=== PATIENT | male | born 1975 | race Caucasian/White ===

== ENCOUNTER 2018-02-06 20:47 | Inpatient (IN) | payer MEDICARE ==
[~2018-02-06] VITALS: Ht 188 cm; Wt 105.0 kg
[~2018-02-06 20:47] MED LIST: DESI150T PO; GABA300C3 PO; LAMO25TA OR; METH10TA OR; METO50TA PO; OMEP20CA5 PO; TEST-25 XX
[2018-02-06 20:57] VITALS: BP 131/76; PULSE 130; RESP 18; TEMP 100.8; O2SAT 98
[2018-02-06] MEDS ORDERED: IBUP1TAB5 PO (21:12)
[2018-02-06 21:20] VITALS: BP 138/81; PULSE 125; RESP 18; O2SAT 95
[2018-02-06] MEDS ORDERED: METO50TA PO (21:23)
[2018-02-06] MEDS ORDERED: GABA300C5 PO (21:23)
[2018-02-06] MEDS ORDERED: DESI150T PO (21:23)
[2018-02-06] MEDS ORDERED: LAMO100T PO (21:23)
[2018-02-06] MEDS ORDERED: METH10TA PO (21:23)
[2018-02-06 21:24] VITALS: O2SAT 95
--- NOTE | 2018-02-06 21:34 | PD ---
HPI Chief Complaint: Fever Time Seen by Provider: 21:20 Travel History International Travel<30 days: No Contact w/Intl Traveler<30days: No Traveled to known affect area: No History of Present Illness HPI The patient is a 42 year old male who presents to the [facility] emergency department with a history of peripheral neuropathy and Charcot foot with a chronic area of ulceration on the left foot that first was noticed 2 years ago. The patient reports that twice in the last 6 months he has had an infection associated with the ulcer. The patient reports that he was last admitted to [facility] ([place], [place]) approximately 2 weeks ago for 6 days. He reports that he was discharged home on 1 week ago. He reports that he was admitted related to fevers and a suspected osteomyelitis of the left foot after an x-ray revealed an abnormality. He reports that he underwent an MRI of the foot that also revealed an abnormality. He then had a biopsy done which was reportedly negative for infection. He reports that the IV antibiotic that he was on during his hospitalization was discontinued and he was discharged home off of all antibiotic. The patient reports that yesterday he began to have fevers again up to 100 and today he had a T-max of 103.5 which prompted his visit to this emergency department. The patient reports that he has been bandaging the area and changing the bandage every day. He reports that he last changed yesterday. He is accompanied to this emergency department visit by his . They report that there has been some drainage from the wound. When the bandage was removed in the emergency department today his reports that there is now a surrounding area of redness which is increased in size compared to his foot evaluation done yesterday when his bandage was replaced. He reports having chills. He reports having nausea without vomiting. He denies having any cough, congestion, sore throat, or rhinorrhea. He denies having any diarrhea. He denies having any frequency. Otherwise on review of systems he denies having any new neck or back pain, chest pain, shortness of breath, abdominal pain, or neurologic symptoms. [facility] Past Medical History Narrative Medical The patient's past medical history is significant for rheumatoid arthritis, peripheral neuropathy, Charcot foot on the left, degenerative disc disease of his back, hypertension, chronic ulcer of the left foot. Cancer: No Cardiovascular Problems: No Diabetes: No Diminished Hearing: No Endocrine: No Gastrointestinal Disorders: Yes (REFLUX) Genitourinary: No Hepatitis: No Hiatal Hernia: No Immune Disorder: No Musculoskeletal: Yes (ARTHRITIS) Psychiatric: No Reproductive: No Respiratory: No Thyroid Disease: No Tetanus Vaccination: < 5 Years Influenza Vaccination: No Past Surgical History Narrative Surgical The patient's past surgical history is significant for right knee arthroscopy 2 , wound debridement of the left foot. Abdominal Surgery: No AICD: No Cardiac Surgery: No Ear Surgery: No Endocrine Surgery: No Eye Surgery: No Genitourinary Surgery: No Gynecologic Surgery: No Joint Replacement: No Oral Surgery: No Pacemaker: No Thoracic Surgery: No Other Surgery: Yes (wound debriment, bone biopsy of the foot) Social History Alcohol Use: No Tobacco Use: No Substance Use: No Allergies-Medications (Allergen,Severity, Reaction): Coded Allergies: No Known Allergies (Unverified Adverse Reaction, Unknown, 02/06/18) Reported Meds & Prescriptions Reported Meds & Active Scripts Active Reported Metoprolol Tartrate 50 Mg Tab 50 Mg PO DAILY Lamotrigine 100 Mg Tab 75 Mg PO BID Desipramine (Desipramine HCl) 150 Mg Tab 150 Mg PO HS Methadone (Methadone HCl) 10 Mg Tab 10 Mg PO TID Gabapentin 300 Mg Cap 300 Mg PO TID Ibuprofen 400 Mg Tab 400 Mg PO QID Review of Systems Except as stated in HPI: all other systems reviewed are Neg General / Constitutional: Positive: Fever, Chills Eyes: No: Visual changes HENT: No: Headaches, Congestion Cardiovascular: No: Chest Pain or Discomfort Respiratory: No: Cough, Shortness of Breath Gastrointestinal: Positive: Nausea, No: Vomiting, Diarrhea, Abdominal Pain Genitourinary: No: Dysuria Musculoskeletal: Positive: Pain Skin: No Rash Neurologic: No: Weakness, Focal Abnormalities, Change in Mentation, Slurred Speech, Sensory Disturbance Psychiatric: No: Depression Endocrine: No: Polydipsia Hematologic/Lymphatic: No: Easy Bruising Physical Exam Narrative General: The patient is a well-developed well-nourished male in no acute distress. Head and Neck exam: Head is normocephalic atraumatic. Eyes: EOMI, pupils are equal round and reactive to light. Nose: Midline septum with pink mucous membranes Mouth: Dentition unremarkable. Moist mucus membranes. Posterior oropharynx is not erythematous. No tonsillar hypertrophy. Uvula midline. Airway patent. Neck: No palpable lymphadenopathy. No nuchal rigidity. No thyromegaly. Cardiovascular: Sinus tachycardia in the 1 teens without murmurs, gallops, or rubs. No pulse deficit to the extremities on simultaneous auscultation and palpation of her radial artery. Lungs: Clear to auscultation bilaterally. No wheezes, rhonchi, or rales. Abdomen: Soft, without tenderness to palpation in all 4 quadrants of the abdomen. No guarding, rebound, or rigidity. Normal bowel sounds are audible. No tenderness on palpation of McBurney's point. Negative Lay sign. Extremities: No clubbing, cyanosis, or edema. 2+ pulses in all 4 extremities. No calf tenderness on palpation. The patient has some deformity noted at the left foot related to his Charcot foot. The patient has a bandage in place which was removed. The patient is noted to have an ulcer along the medial aspect of the foot on the skin overlying the proximal first metatarsal. There is an area of ulceration with minimal drainage that is yellow in color. There is no odor noted. The area of ulcer is 1 x 1 cm. There is a surrounding area of erythema. Patient denies having any tenderness, however he has neuropathy with loss of sensation that is chronic. Back: No spinous process tenderness to palpation. No costovertebral angle tenderness to palpation. Neurologic Exam: Grossly nonfocal. The patient reports diminished sensation in bilateral feet which is chronic related to neuropathy. Skin Exam: No rash noted. Intact skin that is warm and dry. Data Data Last Documented VS Vital Signs Date Time Temp Pulse Resp B/P (MAP) Pulse Ox O2 Delivery O2 Flow Rate FiO2 02/06/18 22:43 101 18 127/78 (94) 98 Room Air 02/06/18 20:57 100.8 Orders Orders Electrocardiogram (02/06/18 21:20) Complete Blood Count With Diff (02/06/18 21:20) Comprehensive Metabolic Panel (02/06/18 21:20) Prothrombin Time / Inr (Pt) (02/06/18 21:20) Act Partial Throm Time (Ptt) (02/06/18 21:20) Blood Culture (02/06/18 21:20) C-Reactive Protein (Crp) (02/06/18 21:20) Urinalysis - C+S If Indicated (02/06/18 21:20) Westergren Sedimentation Rate (02/06/18 21:20) Magnesium (Mg) (02/06/18 21:20) Wound Culture And Gram Stain (02/06/18 21:20) Chest, Single Ap (02/06/18 21:20) Iv Access Insert/Monitor (02/06/18 21:20) Ecg Monitoring (02/06/18 21:20) Oximetry (02/06/18 21:20) Lactic Acid Sepsis Protocol (02/06/18 21:20) Sodium Chlor 0.9% 1000 Ml Inj (Ns 1000 M (02/06/18 22:00) Piperacil-Tazo 3.375 Gm Premix (Zosyn 3. (02/06/18 22:00) Vancomycin Inj (Vancomycin Inj) (02/06/18 22:00) Sodium Chlor 0.9% 1000 Ml Inj (Ns 1000 M (02/06/18 22:45) Admit Order (Ed Use Only) (02/06/18 22:57) Consult Podiatry (02/06/18 ) Vital Signs (Adult) AIDE.Q4H (02/06/18 22:55) Activity Oob With Assistance (02/06/18 22:55) Diet Heart Healthy (02/07/18 Breakfast) Linezolid (Zyvox) (02/07/18 09:00) C-Reactive Protein (Crp) (02/07/18 06:00) Piperacil-Tazo 3.375 Gm Premix (Zosyn 3. (02/07/18 10:00) Labs Laboratory Tests Test 02/06/18 21:27 White Blood Count 8.4 TH/MM3 Red Blood Count 5.04 MIL/MM3 Hemoglobin 14.3 GM/DL Hematocrit 41.6 % Mean Corpuscular Volume 82.4 FL Mean Corpuscular Hemoglobin 28.4 PG Mean Corpuscular Hemoglobin Concent 34.4 % Red Cell Distribution Width 13.5 % Platelet Count 214 TH/MM3 Mean Platelet Volume 7.9 FL Neutrophils (%) (Auto) 82.9 % Lymphocytes (%) (Auto) 9.7 % Monocytes (%) (Auto) 6.6 % Eosinophils (%) (Auto) 0.0 % Basophils (%) (Auto) 0.8 % Neutrophils # (Auto) 7.0 TH/MM3 Lymphocytes # (Auto) 0.8 TH/MM3 Monocytes # (Auto) 0.6 TH/MM3 Eosinophils # (Auto) 0.0 TH/MM3 Basophils # (Auto) 0.1 TH/MM3 CBC Comment DIFF FINAL Differential Comment Erythrocyte Sedimentation Rate 51 mm/hr Prothrombin Time 12.3 SEC Prothromb Time International Ratio 1.2 RATIO Activated Partial Thromboplast Time 33.0 SEC Blood Urea Nitrogen 6 MG/DL Creatinine 1.04 MG/DL Random Glucose 148 MG/DL Total Protein 8.6 GM/DL Albumin 3.4 GM/DL Calcium Level 8.9 MG/DL Magnesium Level 1.8 MG/DL Alkaline Phosphatase 149 U/L Aspartate Amino Transf (AST/SGOT) 36 U/L Alanine Aminotransferase (ALT/SGPT) 31 U/L Total Bilirubin 0.6 MG/DL Sodium Level 131 MEQ/L Potassium Level 3.7 MEQ/L Chloride Level 98 MEQ/L Carbon Dioxide Level 19.8 MEQ/L Anion Gap 13 MEQ/L Estimat Glomerular Filtration Rate 78 ML/MIN Lactic Acid Level 2.8 mmol/L C-Reactive Protein 13.00 MG/DL [facility] Medical Decision Making Medical Screen Exam Complete: Yes Emergency Medical Condition: Yes Medical Record Reviewed: Yes Differential Diagnosis Febrile illness caused by cellulitis, versus osteomyelitis, versus this, versus sepsis of undetermined cause Narrative Course During the course of the patient's emergency department visit, the patient's history, examination, and differential diagnosis were reviewed with the patient. The patient was placed on a traffic monitor specialist with oximetry and frequent blood pressure monitoring. The patient had IV access obtained and blood work sent for analysis. Blood cultures 2 were ordered, lactic acid was sent. Sedimentation rate was ordered. The patient had an EKG done on arrival that shows a sinus tachycardia rate of 108, QRS duration is 113 ms, QTC 389 ms. The patient has an incomplete right bundle branch noted. The patient has nonspecific ST-T wave abnormalities noted. T waves are inverted in lead III, V1 , V2, V3. The patient's records from [facility] ([place], [place]) will be obtained. The patient was initially provided normal saline 1 L IV fluid bolus. The patient was started on broad-spectrum antibiotic to include Zosyn and vancomycin. The patient's laboratory studies were reviewed and remarkable for A white count of 8.4, hemoglobin 14.3, platelets 214, neutrophils 82.9, sedimentation rate is 51. CMP is remarkable for sodium of 131, CO2 19.8, BUN 6, glucose 148, alk phos 149, C-reactive protein is elevated at 13, lactic acid is elevated at 2.8. PT 12.3, INR 1.2, PTT 33, urinalysis within normal limits. Radiology studies were reviewed and remarkable for Last Impressions Chest X-Ray 02/06/182119 Signed Impressions: CONCLUSION: No active disease. The patient was continued on normal saline IV fluids. The patient's record from [facility] ([place], [place]) was able to be obtained. The patient did undergo MRI and x-rays at the other facility, therefore the admitting hospitalist did not recommend repeating these at this time. I spoke to Dr. Nascimento regarding this patient's admission. The patient's results were discussed with the patient, including the plan of care. I explained that further testing and/ or monitoring is indicated based on the patient's history, examination, and/ or laboratory findings. Therefore, I recommended admission for additional evaluation. The patient expressed understanding and was agreeable with this plan. The patient was admitted to the hospital in guarded condition and sent to a bed under the care of the [facility] service. Sepsis Criteria SIRS Criteria (2 or more): Heart rate over 90 Severe Sepsis (+one): Lactate >2 Physician Communication Physician Communication The patient's case including history, pertinent physical examination findings, and laboratory studies were discussed with Dr. Nascimento. It was agreed that the patient would be admitted to the [facility] service. Diagnosis Primary Impression: Left foot infection Additional Impression: Chronic ulcer of left foot Qualified Codes: L97.529 - Non-pressure chronic ulcer of other part of left foot with unspecified severity Admitting Information Admitting Physician Requests: Admit Jennifer Prasad MD Feb 06, 2018 21:34
--- NOTE | 2018-02-06 21:35 | RADRPT ---
EXAM DATE: 02/06/2018 9:32 PM EDT AGE/SEX: 42 years / Male INDICATIONS: Fever. Possible left foot infection. CLINICAL DATA: This is the patient's initial encounter. Patient reports that signs and symptoms have been present for 1 day and indicates a pain score of 0/10. MEDICAL/SURGICAL HISTORY: . Peripheral neuropathy None. COMPARISON: No prior exams available for comparison. FINDINGS: A single AP view of the chest demonstrates the lungs to be symmetrically aerated without evidence of mass, infiltrate or effusion. The cardiomediastinal contours are unremarkable. Osseous structures a re intact. CONCLUSION: No active disease. Electronically signed by: Yovany Sanders MD 02/06/2018 9:34 PM EDT
[2018-02-06 21:43] LABS: BASOPHIL # 0.1 TH/MM3 (0-0.2); BASOPHIL % 0.8 % (0.0-2.0); HEMATOCRIT 41.6 % (39.0-51.0); HEMOGLOBIN 14.3 GM/DL (13.0-17.0); LYMPH % 9.7 % (9.0-44.0); LYMPHOCYTE # 0.8 TH/MM3 (1.0-4.8); MEAN CELL VOLUME 82.4 FL (80.0-100.0); MEAN CORPUSCULAR HEMOGLOBIN 28.4 PG (27.0-34.0); MEAN CORPUSCULAR HGB CONC 34.4 % (32.0-36.0); MEAN PLATELET VOLUME 7.9 FL (7.0-11.0); MONO % 6.6 % (0.0-8.0); MONOCYTE # 0.6 TH/MM3 (0-0.9); NEUT % 82.9 % (16.0-70.0); PLATELET COUNT 214 TH/MM3 (150-450); RED BLOOD COUNT 5.04 MIL/MM3 (4.50-5.90); RED CELL DISTRIBUTION WIDTH 13.5 % (11.6-17.2); WHITE BLOOD COUNT 8.4 TH/MM3 (4.0-11.0)
[2018-02-06 21:55] LABS: INTERNATIONAL NORMALIZED RATIO 1.2 RATIO; PROTHROMBIN TIME - PATIENT 12.3 SEC (9.8-11.6)
[2018-02-06 21:59] LABS: LACTIC ACID SEPSIS PROTOCOL 2.8 mmol/L (0.4-2.0)
[2018-02-06] MEDS ORDERED: VANCOMYCIN INJ 1,000 MG in SODIUM CHLOR 0.9% 250 ML INJ 250 ML IV ONE (22:00)
[2018-02-06] MEDS ORDERED: SODIUM CHLOR 0.9% 1000 ML INJ 1,000 ML IV ONE ×2 (22:00→22:45)
[2018-02-06] MEDS ORDERED: PIPERACIL-TAZO 3.375 GM PREMIX 50 ML IV ONE (22:00)
[2018-02-06 22:02] LABS: ALBUMIN 3.4 GM/DL (3.4-5.0); AST (GOT) 36 U/L (15-37); BICARBONATE 19.8 MEQ/L (21.0-32.0); BLOOD UREA NITROGEN 6 MG/DL (7-18); CALCIUM 8.9 MG/DL (8.5-10.1); CHLORIDE 98 MEQ/L (98-107); CREATININE 1.04 MG/DL (0.60-1.30); GLOMERULAR FILTRATION RATE 78 ML/MIN (>89); GLUCOSE,RANDOM 148 MG/DL (74-106); MAGNESIUM 1.8 MG/DL (1.5-2.5); SODIUM (NA) 131 MEQ/L (136-145)
[2018-02-06 22:03] LABS: ALT (GPT) 31 U/L (12-78)
[2018-02-06 22:05] LABS: ALKALINE PHOSPHATASE 149 U/L (45-117); TOTAL BILIRUBIN ADULT 0.6 MG/DL (0.2-1.0); TOTAL PROTEIN 8.6 GM/DL (6.4-8.2)
[2018-02-06 22:43] VITALS: BP 127/78; PULSE 101; RESP 18; O2SAT 98
[2018-02-06 23:20] LABS: BILIRUBIN, URINE NEG (NEG); BLOOD, URINE NEG (NEG); GLUCOSE,URINE NEG (NEG); KETONE, URINE NEG (NEG); NITRITE,URINE NEG (NEG); PH, URINE 6.5 (5.0-8.5); URINE COLOR YELLOW (YELLW/STRAW); URINE LEUKOCYTE ESTERASE NEG (NEG)
[2018-02-06 23:44] VITALS: BP 115/67; PULSE 98; RESP 18; TEMP 99.7; O2SAT 98
[2018-02-07] VITALS: BP 135/84; PULSE 97; RESP 17; TEMP 101.9; O2SAT 95
[2018-02-07] MEDS: NS + KCL 20 MEQ INJ 1,000 ML IV SCH ×2 (00:41→12:44)
[2018-02-07] MEDS: ACETAMINOPHEN 500 MG CPLT PO PRN (00:58)
[2018-02-07] MEDS ORDERED: DESIPRAMINE HCL 25 MG TAB PO SCH (01:45)
[2018-02-07] MEDS ORDERED: lamoTRIgine 100 MG TAB PO SCH ×2 (01:45→02:00)
[2018-02-07] MEDS ORDERED: METHADONE HCL 10 MG TAB PO SCH (01:45)
[2018-02-07] MEDS ORDERED: GABAPENTIN 300 MG CAP PO SCH (01:45)
[2018-02-07 04:00] VITALS: BP 130/82; PULSE 90; RESP 17; TEMP 99; O2SAT 94
--- NOTE | 2018-02-07 07:55 | HHI.HP ---
HPI Service [facility] Hospitalists Primary Care Physician Mauro Lenz MD Admission Diagnosis Left foot infection Chief Complaint: fevers and chills, foot wound Travel History International Travel<30 Days: No Contact w/Intl Traveler <30 Da: No Traveled to Known Affected Are: No History of Present Illness The patient is a 42 year old male patient with a past medical history which includes peripheral neuropathy, Charcot foot on the left, degenerative disc disease of his back, hypertension, chronic ulcer of the left foot, probably neuropathy and chronic methadone therapy. Patient presents to the [facility] emergency department with a history of peripheral neuropathy and Charcot foot with a chronic area of ulceration on the left foot that first was noticed 2 years ago. The patient reports that twice in the last 6 months he has had an infection associated with the ulcer. The patient was last admitted to [facility] from 01/21/18 to 01/27/18. Per discharge summary patient was admitted and treated for acute left foot cellulitis, suspected osteomyelitis of the left foot and chronic left foot ulcer with recurrent infection. Outpatient MRI of the left foot that 01/17/2018 suggesting osteomyelitis. Patient was then instructed to go to the hospital by his outpatient die repair machinist. While at [facility] patient had a biopsy of the left foot with intraoperative biopsy which did not grow any pathology. He reports that the IV antibiotic ( Unasyn and vancomycin) that he was on during his hospitalization was discontinued and he was discharged home off of all antibiotic. The patient reports that yesterday he began to have fevers again up to 100 and today he had a T-max of 103.5 which prompted his visit to this emergency department. The patient reports that he has been bandaging the area and changing the bandage every day. He reports that he last changed yesterday. Patient and report that there has been some drainage from the wound. When the bandage was removed in the emergency department today his reports that there is now a surrounding area of redness which is increased in size compared to his foot evaluation done yesterday when his bandage was replaced. He reports having chills. He reports having nausea without vomiting. He denies having any cough , congestion, sore throat, or rhinorrhea. He denies having any diarrhea. He denies having any frequency. Otherwise on review of systems he denies having any new neck or back pain, chest pain, shortness of breath or abdominal pain. Review of Systems Constitutional: COMPLAINS OF: Fever, Chills Neurologic: COMPLAINS OF: Abnormal gait (due to foot pain) Past Family Social History Past Medical History peripheral neuropathy, Charcot foot on the left, degenerative disc disease of his back, hypertension, chronic ulcer of the left foot and chronic methadone use Past Surgical History right knee arthroscopy 2, Lumbar injection, wound debridement of the left foot Reported Medications Metoprolol Tartrate 50 Mg Tab 50 Mg PO DAILY Lamotrigine 75 Mg Tab Desipramine (Desipramine HCl) 150 Mg Tab 150 Mg PO HS Methadone (Methadone HCl) 10 Mg Tab 10 Mg PO TID Gabapentin 300 Mg Cap 300 Mg PO TID Ibuprofen 400 Mg Tab 400 Mg PO QID Allergies: Coded Allergies: No Known Allergies (Unverified Adverse Reaction, Unknown, 02/06/18) Family History Noncontributory Social History , has 3 children On disability Denies EtOH use Denies tobacco use Denies illicit drug use Physical Exam Vital Signs Vital Signs Date Time Temp Pulse Resp B/P (MAP) Pulse Ox O2 Delivery O2 Flow Rate FiO2 02/07/18 04:00 99.0 90 17 130/82 (98) 94 02/07/18 00:00 101.9 97 17 135/84 (101) 95 02/06/18 23:58 02/06/18 23:44 99.7 98 18 115/67 (83) 98 Room Air 02/06/18 22:43 101 18 127/78 (94) 98 Room Air 02/06/18 21:24 95 Room Air 02/06/18 21:20 125 18 138/81 (100) 95 Room Air 02/06/18 20:57 100.8 130 18 131/76 (94) 98 Physical Exam GENERAL: This is a well-nourished, well-developed patient, in no apparent distress. SKIN: No rashes, ecchymoses or lesions. Cool and dry. HEAD: Atraumatic. Normocephalic. No temporal or scalp tenderness. EYES: Pupils equal round and reactive. Extraocular motions intact. No scleral icterus. No injection or drainage. ENT: Nose without bleeding, purulent drainage or septal hematoma. Throat without erythema, tonsillar hypertrophy or exudate. Uvula midline. Airway patent. NECK: Trachea midline. No JVD or lymphadenopathy. Supple, nontender, no meningeal signs. CARDIOVASCULAR: Regular rate and rhythm without murmurs, gallops, or rubs. RESPIRATORY: Clear to auscultation. Breath sounds equal bilaterally. No wheezes , rales, or rhonchi. GASTROINTESTINAL: Abdomen soft, non-tender, nondistended. No hepato-splenomegaly , or palpable masses. No guarding. MUSCULOSKELETAL: Extremities without clubbing, cyanosis, or edema. No joint tenderness, effusion, or edema noted. No calf tenderness. Negative Homans sign bilaterally. NEUROLOGICAL: Awake and alert. Cranial nerves II through XII intact. Motor and sensory grossly within normal limits. Five out of 5 muscle strength in all muscle groups. Normal speech. Laboratory Laboratory Tests Test 02/06/18 21:27 02/06/18 23:07 02/07/18 00:30 White Blood Count 8.4 Red Blood Count 5.04 Hemoglobin 14.3 Hematocrit 41.6 Mean Corpuscular Volume 82.4 Mean Corpuscular Hemoglobin 28.4 Mean Corpuscular Hemoglobin Concent 34.4 Red Cell Distribution Width 13.5 Platelet Count 214 Mean Platelet Volume 7.9 Neutrophils (%) (Auto) 82.9 Lymphocytes (%) (Auto) 9.7 Monocytes (%) (Auto) 6.6 Eosinophils (%) (Auto) 0.0 Basophils (%) (Auto) 0.8 Neutrophils # (Auto) 7.0 Lymphocytes # (Auto) 0.8 Monocytes # (Auto) 0.6 Eosinophils # (Auto) 0.0 Basophils # (Auto) 0.1 CBC Comment DIFF FINAL Differential Comment Erythrocyte Sedimentation Rate 51 Prothrombin Time 12.3 Prothromb Time International Ratio 1.2 Activated Partial Thromboplast Time 33.0 Blood Urea Nitrogen 6 Creatinine 1.04 Random Glucose 148 Total Protein 8.6 Albumin 3.4 Calcium Level 8.9 Magnesium Level 1.8 Alkaline Phosphatase 149 Aspartate Amino Transf (AST/SGOT) 36 Alanine Aminotransferase (ALT/SGPT) 31 Total Bilirubin 0.6 Sodium Level 131 Potassium Level 3.7 Chloride Level 98 Carbon Dioxide Level 19.8 Anion Gap 13 Estimat Glomerular Filtration Rate 78 Lactic Acid Level 2.8 2.4 C-Reactive Protein 13.00 Urine Color YELLOW Urine Turbidity CLEAR Urine pH 6.5 Urine Specific [place] 1.006 Urine Protein NEG Urine Glucose (UA) NEG Urine Ketones NEG Urine Occult Blood NEG Urine Nitrite NEG Urine Bilirubin NEG Urine Urobilinogen LESS THAN 2.0 Urine Leukocyte Esterase NEG Urine RBC LESS THAN 1 Urine WBC LESS THAN 1 Microscopic Urinalysis Comment CULT NOT INDICATED Date/Time Source Procedure Growth Status 02/06/18 21:27 Blood Peripheral Aerobic Blood Culture Pending Received 02/06/18 21:27 Blood Peripheral Anaerobic Blood Culture Pending Received 02/06/18 21:27 Wound Foot Gram Stain Pending Received 02/06/18 21:27 Wound Foot Wound Culture Pending Received Result Diagram: 02/06/[id number]/[id number] Imaging Last Impressions Chest X-Ray 02/06/182119 Signed Impressions: CONCLUSION: No active disease. Caprini VTE Risk Assessment Caprini VTE Risk Assessment: Mod/High Risk (score >= 2) Caprini Risk Assessment Model Point Value = 1 Point Value = 2 Point Value = 3 Point Value = 5 Age 41-60 Minor surgery BMI > 25 kg/m2 Swollen legs Varicose veins or History of unexplained or recurrent spontaneous Oral contraceptives or hormone replacement Sepsis (< 1 month) Serious lung disease, including pneumonia (< 1 month) Abnormal pulmonary function Acute myocardial infarction Congestive heart failure (< 1 month) History of inflammatory bowel disease Medical patient at bed rest Age 61-74 Arthroscopic surgery Major open surgery (> 45 min) Laparoscopic surgery (> 45 min) Malignancy Confined to bed (> 72 hours) Immobilizing plaster cast Central venous access Age >= 75 History of VTE Family history of VTE Factor V Leiden Prothrombin 64004O Lupus anticoagulant Anticardiolipin antibodies Elevated serum homocysteine Heparin-induced thrombocytopenia Other congenital or acquired thrombophilia Stroke (< 1 month) Elective arthroplasty Hip, pelvis, or leg fracture Acute spinal cord injury (< 1 month) Prophylaxis Regimen Total Risk Factor Score Risk Level Prophylaxis Regimen 0-1 Low Early ambulation 2 Moderate Order ONE of the following: *Sequential Compression Device (SCD) *Heparin 5000 units SQ BID 3-4 Higher Order ONE of the following medications: *Heparin 5000 units SQ TID *Enoxaparin/Lovenox 40 mg SQ daily (WT < 150 kg, CrCl > 30 mL/min) *Enoxaparin/Lovenox 30 mg SQ daily (WT < 150 kg, CrCl > 10-29 mL/min) *Enoxaparin/Lovenox 30 mg SQ BID (WT < 150 kg, CrCl > 30 mL/min) AND/OR *Sequential Compression Device (SCD) 5 or more Highest Order ONE of the following medications: *Heparin 5000 units SQ TID (Preferred with Epidurals) *Enoxaparin/Lovenox 40 mg SQ daily (WT < 150 kg, CrCl > 30 mL/min) *Enoxaparin/Lovenox 30 mg SQ daily (WT < 150 kg, CrCl > 10-29 mL/min) *Enoxaparin/Lovenox 30 mg SQ BID (WT < 150 kg, CrCl > 30 mL/min) AND *Sequential Compression Device (SCD) Assessment and Plan Problem List: (1) infected foot Plan: Patient has chronic left foot wound which is been present for approximately 2 years. Patient recently admitted to [facility] from 01/21/18 to 01/27/18. Per discharge summary patient was admitted and treated for acute left foot cellulitis, suspected osteomyelitis of the left foot and chronic left foot ulcer with recurrent infection. Outpatient MRI of the left foot that 01/17/2018 suggesting osteomyelitis. Patient was then instructed to go to the hospital by his outpatient die repair machinist. While at [facility] patient had a biopsy of the left foot with intraoperative biopsy which did not grow any pathology. He reports that the IV antibiotic ( Unasyn and vancomycin) that he was on during his hospitalization was discontinued and he was discharged home off of all antibiotic. The patient reports that yesterday he began to have fevers again up to 100 and today he had a T-max of 103.5 which prompted his visit to this emergency department. Patient has been doing home dressing changes and noted increased drainage as well. Consult podiatry Patient started on vancomycin and Zosyn in emergency department Continue Zosyn and Zyvox Blood cultures obtained and pending Wound culture requested MRI left foot reviewed and reveals: Abnormal enhancement and edema of the medial cuneiform characteristic of osteomyelitis with adjacent soft tissue edema. Significant facet arthrosis first and second tarsometatarsal joints. Peripheral neuropathy Continue patient's home gabapentin Depression continue patient's home Desipramine Chronic pain continue patient's home methadone SCDs for DVT prophylaxis (2) Peripheral neuropathy ICD Codes: G62.9 - Polyneuropathy, unspecified (3) Depression ICD Codes: F32.9 - Major depressive disorder, single episode, unspecified Physician Certification 2 Midnight Certification Type: Admission for Inpatient Services Order for Inpatient Services The services are ordered in accordance with Medicare regulations or non- Medicare payer requirements, as applicable. In the case of services not specified as inpatient-only, they are appropriately provided as inpatient services in accordance with the 2-midnight benchmark. Estimated LOS (days): 4 days is the estimated time the patient will need to remain in the hospital, assuming treatment plan goals are met and no additional complications. Post-Hospital Plan: Home Health Linda Casillas Feb 07, 2018 07:55
[2018-02-07 08:00] VITALS: BP 130/74; PULSE 91; RESP 18; TEMP 100.7; O2SAT 99
--- NOTE | 2018-02-07 08:30 | MB ---
cc: Plolo Bettencourt DPM DATE: 02/07/2018 REASON FOR CONSULTATION: Left foot ulcer, cellulitis, Charcot foot, possible osteomyelitis. HISTORY OF PRESENT ILLNESS: This is a 42-year-old male who suffers from peripheral neuropathy of unknown etiology; however, per patient, he relates it may have been caused by Enbrel. The patient was recently seen within the last 1-2 weeks at [facility] by my associate, Dr. Chatman. Apparent incision, drainage and bone biopsy was performed. Apparently was normal; however, I do not have the results. He received only 1-2 days of antibiotics. He was discharged home by infectious disease and the patient continues to have redness and drainage and subjective fevers. The patient also relates that he has a history of elevated blood pressure and he was seen by a assembler tubing that showed a history of OR. Per the patient, the assembler tubing said there was never an OR. The patient is seen at bedside with his . The patient is disabled. He has to take pain medication daily secondary to rheumatoid arthritis. PAST MEDICAL HISTORY: Peripheral neuropathy, Charcot foot, left chronic ulceration, DJD disease of his back, hypertension. PAST SURGICAL HISTORY: Right knee history of wound debridement, left foot. REPORTED MEDICATIONS: 1. Metoprolol. 2. Lamotrigine. 3. Desipramine. 4. Methadone. 5. Gabapentin. 6. Ibuprofen. ALLERGIES: No drug allergies are noted, however, relates a history of MRSA. INPATIENT MEDICATIONS: He is receiving Zyvox and Zosyn, as well as vancomycin. PHYSICAL EXAMINATION: VITAL SIGNS: Temperature is 99; however, 101.9 within the last 24 hours, pulse rate 90, respiratory rate 17, blood pressure 130/82, saturating 94% on room air. GENERAL: This is an alert and oriented gentleman seen bedside exhibiting nonlabored respirations. EXTREMITIES: Bilateral lower extremities are examined. Left lower extremity, there is noted to be a forefoot abduction decreased arch height and which appears to be a chronic mid foot Charcot in a coalesced stage, it is rigid. There is no instability noted. There is a purulent draining eschar ulcer of the medial aspect of the mid foot at the level of the medial cuneiform area. Upon deep pressure to the area, there is a soupy purulent discharge that is extruded from the wound. A culture taken of this area. Redness extends to the periphery approximately 2-3 cm. This appears to probe deep possibly to bone. Pedal pulses are fully palpable. There is good capillary fill time to the digits. The right lower extremity is without any ulcerations and there appears to be good biomechanical alignment. There is decreased muscle girth of the patient's distal legs; however, relatively good muscle strength is noted. Sensation is not intact to below the patient's ankles. LABORATORY FINDINGS: White blood cell 8.4, hemoglobin and hematocrit 14/41, platelet count is 214. ESR 51. Chem-7: Sodium 131, potassium 3.7, chloride 98, CO2 19.8, BUN is 6. Random glucose is 148. Estimated GFR 78, creatinine 1.04, BUN is 6. Lactic acid is 2.4, alkaline phosphatase is 149. C-reactive protein is 13. IMAGING FINDINGS: Chest x-ray, no mass or infiltrate noted. Osseous structures are intact. Cardiomediastinal contours are unremarkable. Left foot x-ray and MRI ordered. CULTURES: Blood culture and wound culture were both ordered and pending. ASSESSMENT AND PLAN: Left foot chronic ulceration, likely deep abscess, questionable osteomyelitis, even though given recent surgery and pathology elevated CRP is quite concerning. I am recommending likely operative debridement or at least wound exploration pending MRI results. The patient actually has palpable pulses and good circulation. I do not think vascular flow is an issue. Anticipate the need for long-term IV antibiotics. Infectious disease consultation will be of good measure. We will continue to follow along. Cardiac workup, I will leave this to medicine anticipating surgery in the next 24 hours. HENRY Quiroz/REJI , 08:10 AM , 08:29 AM
[2018-02-07] MEDS ORDERED: PNEUMOCOCCAL POLYVALENT INJ 25 MCG/0.5 ML SYR IM ONE (09:00)
[2018-02-07] MEDS: METOPROLOL TARTRATE 50 MG TAB PO SCH (09:17)
[2018-02-07] MEDS: LINEZOLID 600 MG TAB PO SCH ×2 (09:17→22:00)
[2018-02-07] MEDS: GABAPENTIN 300 MG CAP PO SCH ×3 (09:18→17:51)
[2018-02-07] MEDS: PIPERACIL-TAZO 3.375 GM PREMIX 50 ML IV SCH ×3 (10:00→21:59)
[2018-02-07] MEDS ORDERED: PIPERACIL-TAZO 3.375 GM PREMIX 50 ML IV SCH (10:00)
[2018-02-07 10:30] LABS: BICARBONATE 25.1 MEQ/L (21.0-32.0); CALCIUM 8.1 MG/DL (8.5-10.1); CREATININE 0.87 MG/DL (0.60-1.30)
[2018-02-07] MEDS: lamoTRIgine 25 MG TAB PO SCH ×2 (10:38→22:00)
[2018-02-07] MEDS ORDERED: GADODIAMIDE PF 287 MG/ML 5 ML VIAL (for RAD MRI) IVCONTRAST ONE (12:09)
--- NOTE | 2018-02-07 12:28 | RADRPT ---
EXAM DATE: 02/07/2018 12:08 PM EDT AGE/SEX: 42 years / Male INDICATIONS: Osteomyelitis. Left foot wound with sore on the medial side by proximal metatarsels. CLINICAL DATA: This is the patient's subsequent encounter. Patient reports that signs and symptoms h ave been present for > 1 year and indicates a pain score of 2/10. MEDICAL/SURGICAL HISTORY: Hypertension. Charcot of left foot. . Right knee sx, Neurostimulator removed, Left foot sx. COMPARISON: No prior exams available for comparison. EXTERNAL: [place]. 2018-01-17 TECHNIQUE: Multiplanar, multisequence MRI examination was performed without contrast and after th e intravenous administration of 21 ml Omniscan (gadodiamide) single exam dose. FINDINGS: There is significant marrow edema involving the medial cuneiform with adjacent soft tissue edema pres ent on the prior exam not significantly changed characteristic of osteomyelitis. There is slight angella a involving the middle cuneiform in addition to proximal first and second metatarsal bones not signif icantly changed could be due to chronic facet arthrosis. There is of the examination has not signific antly changed. CONCLUSION: 1. Abnormal enhancement and edema of the medial cuneiform characteristic of osteomyelitis with adjac ent soft tissue edema. 2. Significant facet arthrosis first and second tarsometatarsal joints. Electronically signed by: Erum Hahn MD 02/07/2018 12:27 PM EDT
--- NOTE | 2018-02-07 12:33 | RADRPT ---
EXAM DATE: 02/07/2018 12:25 PM EDT AGE/SEX: 42 years / Male INDICATIONS: Left foot pain and swelling. CLINICAL DATA: This is the patient's subsequent encounter. Patient reports that signs and symptoms h ave been present for > 1 year and indicates a pain score of 2/10. MEDICAL/SURGICAL HISTORY: Hypertension. Peripheral neuropathy. Charcot left foot . Left foot s urgery COMPARISON: [facility], MRI FOOT LEFT W & W/O CONTRAST, 02/07/2018. [facility], MR FOOT W AND W/O CONTRAST, LE FT, 01/17/2018. . FINDINGS: There is significant facet arthrosis first and second tarsometatarsal joints. No definite d estructive lesions are seen, however there is diffuse sclerosis of the medial cuneiform. CONCLUSION: Significant facet arthrosis first and second tarsometatarsal joints and there is diffuse sclerosis of medial cuneiform. Patient's MRI is highly suspicious for osteomyelitis involving the medial cuneifor m. Electronically signed by: Erum Hahn MD 02/07/2018 12:32 PM EDT
--- NOTE | 2018-02-07 14:35 | EKG ---
Date Performed: 02/06/2018 Time Performed: 21:34:30 PTAGE: 42 years EKG: SINUS TACHYCARDIA BORDERLINE RIGHT AXIS DEVIATION INCOMPLETE RIGHT BUNDLE BRANCH BLOCK POSS IBLE INFERIOR MYOCARDIAL INFARCTION MODERATE T-WAVE ABNORMALITY, CONSIDER ANTERIOR ISCHEMIA ABNORMAL ECG NO PREVIOUS TRACING DOCTOR: Cristhian Wong Interpretating Date/Time 02/07/2018 14:31:51
[2018-02-07 16:00] VITALS: BP 119/56; PULSE 88; RESP 20; TEMP 102.2; O2SAT 99
[2018-02-07] MEDS: METHADONE HCL 10 MG TAB PO SCH (17:52)
--- NOTE | 2018-02-07 18:30 | MB ---
cc: Lake Silva MD DATE: 02/07/2018 REQUESTING PHYSICIAN: Dr. Marques REASON: Osteomyelitis of the foot. HISTORY OF PRESENT ILLNESS: This is a 42-year-old white male who has a history of Charcot deformity of the left foot. The patient developed a wound at the inner aspect of the left foot in the area of deformed changes approximately 2 years ago. He developed a wound with drainage and in July he was treated at [facility]. At that time, he was noted to have infection, but negative cultures. He was seen by Infectious Disease physician at that time and was given IV antibiotics and then a PICC line was placed and he was continued on the antibiotics until mid-September, per his report. After that, he states he was put on oral antibiotics for about a month and then antibiotics were discontinued. He was seen a health education director and was noted to have osteomyelitis suspected with chronic left foot ulcer. An MRI was performed on 01/17/2018 and then revealed changes suggesting osteomyelitis. He had a biopsy taken from the left foot and the pathology was unremarkable and he reports that the culture was negative. He was given some antibiotics for a couple of days and then discharged home without antibiotics. He developed elevated temperature of 103.5 degrees and his brought him to the emergency department on 02/06/2018 for evaluation. His noted that there was redness and warmth at the area of the left foot, which was previously involved with infection. The patient notes that he was having some chills and nausea, but no vomiting. He has a history of rheumatoid arthritis and was previously on medications for that. He is on no medications for the rheumatoid arthritis currently. Temperature at [facility] was 100.8 in the emergency department and it subsequently princess to 101.9. White blood cell count is normal. Sedimentation rate is elevated. C-reactive protein is elevated. Culture of the foot where he has an open ulceration approximately the size of a dime, grew Staph aureus preliminary. Susceptibility test is pending. PAST MEDICAL HISTORY: Rheumatoid arthritis, peripheral neuropathy, Charcot deformity of the left foot, hypertension, degenerative disk disease of the back. Right knee arthroscopy, bone biopsy of the left foot. Prior treatment of the left foot for osteomyelitis. Cultures were negative. ALLERGIES: NO KNOWN DRUG ALLERGIES. MEDICATIONS: Zyvox, piperacillin/tazobactam, methadone, desipramine, Neurontin, Lamictal, Lopressor, Tylenol p.r.n. SOCIAL HISTORY: . Denies tobacco. Denies alcohol. Denies illicit drugs. Patient has been getting around with a knee scooter. FAMILY HISTORY: Noncontributory. REVIEW OF SYSTEMS: Pertinent as mentioned above in History Of Present Illness. PHYSICAL EXAMINATION: GENERAL: This is a well-developed male who is in no acute distress. He is awake and alert, oriented. VITAL SIGNS: Temperature 100.7, BP 130/74, respirations 18, heart rate 91. HEENT: Head atraumatic. Extraocular movements are grossly intact. Pupils reactive to light without icterus. No conjunctival erythema. Oropharynx mucosa is moist. No visible lesions. NECK: Supple without adenopathy. LUNGS: Clear, slightly diminished breath sounds. HEART: Regular S1, S2, without murmurs, rubs or gallops. ABDOMEN: Bowel sounds present. Soft, nontender. RECTAL: Not performed. EXTREMITIES: Left foot has Charcot deformity causing angulation of the foot towards the lateral part in the direction of the fifth toe. There is an area of swelling at the area beyond the base of the first toe at the metatarsal and there is mild erythema at the dorsal aspect. There is an ulcer approximately the size of a dime with granulation tissue visible and bloody serous drainage on the dressing, which was removed. The patient has no sensation at the left foot. The dorsalis pedis and posterior tibial pulses are 2+. SKIN: No rash. NEUROLOGIC: No gross focal findings. PSYCHIATRIC: The patient is calm and cooperative. LABORATORY DATA: WBC 8.4, platelets 214, 82% neutrophils, hemoglobin 14.3. Creatinine 0.87, estimated GFR 96. C-reactive protein 16.0. IMPRESSION: 1. Osteomyelitis involving the medial cuneiform. 2. Charcot deformity of the left foot. 3. Staphylococcus aureus positive wound culture preliminary. 4. Fever and chills. RECOMMENDATIONS: 1. Continue linezolid. 2. Continue piperacillin/tazobactam. 3. Monitor the wound culture. 4. Monitor blood culture. 5. Surgical intervention to be determined by Podiatry. The patient very likely will need another course of extended antibiotics for 6 weeks. Thank you for this consultation. I will monitor the patient's progress along with you and make further recommendations upon followup. MD JANA Cash/ITA , 05:42 PM , 06:29 PM HEMANTH
[2018-02-07 20:00] VITALS: BP 122/65; PULSE 91; RESP 17; TEMP 100; O2SAT 99
[2018-02-07] MEDS: DESIPRAMINE HCL 25 MG TAB PO SCH (22:00)
[2018-02-08] VITALS: BP 119/62; PULSE 87; RESP 17; TEMP 98.7; O2SAT 99
[2018-02-08] MEDS: PIPERACIL-TAZO 3.375 GM PREMIX 50 ML IV SCH ×2 (03:31→09:36)
[2018-02-08 08:00] VITALS: BP 130/77; PULSE 93; RESP 18; TEMP 98.2; O2SAT 100
--- NOTE | 2018-02-08 09:22 | HHI.PR ---
Subjective Remarks Patient reports feeling well at this time 24 hour T max 102.2 02/07/18 at 1600 Objective Vitals Vital Signs Date Time Temp Pulse Resp B/P (MAP) Pulse Ox O2 Delivery O2 Flow Rate FiO2 02/08/18 08:00 98.2 93 18 130/77 (94) 100 02/08/18 00:00 98.7 87 17 119/62 (81) 99 02/07/18 20:00 100.0 91 17 122/65 (84) 99 02/07/18 16:00 102.2 88 20 119/56 (77) 99 Result Diagram: 02/06/18212602/07/18924 Other Results Laboratory Tests Test 02/06/18 21:27 02/06/18 23:07 02/07/18 00:30 02/07/18 09:25 White Blood Count 8.4 TH/MM3 Red Blood Count 5.04 MIL/MM3 Hemoglobin 14.3 GM/DL Hematocrit 41.6 % Mean Corpuscular Volume 82.4 FL Mean Corpuscular Hemoglobin 28.4 PG Mean Corpuscular Hemoglobin Concent 34.4 % Red Cell Distribution Width 13.5 % Platelet Count 214 TH/MM3 Mean Platelet Volume 7.9 FL Neutrophils (%) (Auto) 82.9 % Lymphocytes (%) (Auto) 9.7 % Monocytes (%) (Auto) 6.6 % Eosinophils (%) (Auto) 0.0 % Basophils (%) (Auto) 0.8 % Neutrophils # (Auto) 7.0 TH/MM3 Lymphocytes # (Auto) 0.8 TH/MM3 Monocytes # (Auto) 0.6 TH/MM3 Eosinophils # (Auto) 0.0 TH/MM3 Basophils # (Auto) 0.1 TH/MM3 CBC Comment DIFF FINAL Differential Comment Erythrocyte Sedimentation Rate 51 mm/hr Prothrombin Time 12.3 SEC Prothromb Time International Ratio 1.2 RATIO Activated Partial Thromboplast Time 33.0 SEC Blood Urea Nitrogen 6 MG/DL 5 MG/DL Creatinine 1.04 MG/DL 0.87 MG/DL Random Glucose 148 MG/DL 128 MG/DL Total Protein 8.6 GM/DL Albumin 3.4 GM/DL Calcium Level 8.9 MG/DL 8.1 MG/DL Magnesium Level 1.8 MG/DL Alkaline Phosphatase 149 U/L Aspartate Amino Transf (AST/SGOT) 36 U/L Alanine Aminotransferase (ALT/SGPT) 31 U/L Total Bilirubin 0.6 MG/DL Sodium Level 131 MEQ/L 137 MEQ/L Potassium Level 3.7 MEQ/L 3.7 MEQ/L Chloride Level 98 MEQ/L 103 MEQ/L Carbon Dioxide Level 19.8 MEQ/L 25.1 MEQ/L Anion Gap 13 MEQ/L 9 MEQ/L Estimat Glomerular Filtration Rate 78 ML/MIN 96 ML/MIN Lactic Acid Level 2.8 mmol/L 2.4 mmol/L C-Reactive Protein 13.00 MG/DL 16.00 MG/DL Urine Color YELLOW Urine Turbidity CLEAR Urine pH 6.5 Urine Specific Hat[place] 1.006 Urine Protein NEG mg/dL Urine Glucose (UA) NEG mg/dL Urine Ketones NEG mg/dL Urine Occult Blood NEG Urine Nitrite NEG Urine Bilirubin NEG Urine Urobilinogen LESS THAN 2.0 MG/DL Urine Leukocyte Esterase NEG Urine RBC LESS THAN 1 /hpf Urine WBC LESS THAN 1 /hpf Microscopic Urinalysis Comment CULT NOT INDICATED Imaging Last Impressions Chest X-Ray 02/06/182119 Signed Impressions: CONCLUSION: No active disease. Objective Remarks GENERAL: This is a well-nourished, well-developed patient, in no apparent distress. CARDIOVASCULAR: Regular rate and rhythm RESPIRATORY: Clear to auscultation. Breath sounds equal bilaterally. GASTROINTESTINAL: Abdomen soft, non-tender, nondistended. Normal active bowel sounds MUSCULOSKELETAL: Extremities without clubbing, cyanosis, or edema. dressing left foot dry and intact NEURO: Alert & Oriented x4 to person, place, time, situation. Moves all ext x4 A/P Problem List: (1) infected foot Plan: Patient has chronic left foot wound which is been present for approximately 2 years. Patient recently admitted to [facility] from 01/21/18 to 01/27/18. Per discharge summary patient was admitted and treated for acute left foot cellulitis, suspected osteomyelitis of the left foot and chronic left foot ulcer with recurrent infection. Outpatient MRI of the left foot that 01/17/2018 suggesting osteomyelitis. Patient was then instructed to go to the hospital by his outpatient poultry pinner. While at [facility] patient had a biopsy of the left foot with intraoperative biopsy which did not grow any pathology. He reports that the IV antibiotic ( Unasyn and vancomycin) that he was on during his hospitalization was discontinued and he was discharged home off of all antibiotic. The patient reports that yesterday he began to have fevers again up to 100 and today he had a T-max of 103.5 which prompted his visit to this emergency department. Patient has been doing home dressing changes and noted increased drainage as well. Consult podiatry Patient started on vancomycin and Zosyn in emergency department Continue Zosyn and Zyvox Blood cultures obtained 1 bottle growing gram-positive cocci Wound culture left foot growing staph aureus MRI left foot reviewed and reveals: Abnormal enhancement and edema of the medial cuneiform characteristic of osteomyelitis with adjacent soft tissue edema. Significant facet arthrosis first and second tarsometatarsal joints. Consultation to infectious disease, appreciate assistance. recommend continuing Zyvox and Zosyn at this time, patient may need 6 weeks antibiotic course Podiatry plans for surgical intervention this afternoon Patient NPO Peripheral neuropathy Continue patient's home gabapentin Depression continue patient's home Desipramine Chronic pain continue patient's home methadone SCDs for DVT prophylaxis (2) Peripheral neuropathy ICD Codes: G62.9 - Polyneuropathy, unspecified (3) Depression ICD Codes: F32.9 - Major depressive disorder, single episode, unspecified Assessment and Plan Patient examined. Assessment and plan formulated with Linda Casillas PA-C. I agree with the above. osteo/abscess of foot. mssa wound infection and bacteremia ID following. ?oxacillin for 6 weeks.. Linda Casillas Feb 08, 2018 09:22 Emiliano Marques MD Feb 08, 2018 13:07
[2018-02-08] MEDS: lamoTRIgine 25 MG TAB PO SCH ×2 (09:33→20:12)
[2018-02-08] MEDS: GABAPENTIN 300 MG CAP PO SCH ×3 (09:33→17:29)
[2018-02-08] MEDS: METOPROLOL TARTRATE 50 MG TAB PO SCH (09:33)
[2018-02-08] MEDS: LINEZOLID 600 MG TAB PO SCH (09:33)
[2018-02-08] MEDS: METHADONE HCL 10 MG TAB PO SCH ×3 (09:34→17:29)
[2018-02-08 12:00] VITALS: BP 127/77; PULSE 77; RESP 18; TEMP 98.7; O2SAT 98
[2018-02-08] MEDS ORDERED: BUPIVACAINE HCL PF 0.5% 30 ML VIAL ONE (13:39)
[2018-02-08] MEDS ORDERED: NEOMYCIN/POLYMYXIN 1 ML G.U. IRRIGANT ONE (13:42)
[2018-02-08] MEDS: ceFAZolin 2 GM PREMIX 50 ML IV SCH ×2 (15:00→23:20)
[2018-02-08] MEDS ORDERED: MIDAZOLAM HCL 2 MG/2 ML VIAL ONE (15:07)
[2018-02-08] MEDS ORDERED: DO NOT ADM ANY ANTICOAGULANT DRUGS PRN (15:10)
--- NOTE | 2018-02-08 15:16 | HHI.PR ---
Immediate Post Op Note Procedure Date: Feb 08, 2018 Pre Op Diagnosis: Left foot ulcer abscess OM charcot Post Op Diagnosis: same Surgeon: Pollo Winters Coding Quality Analyst(s): scrub Procedure: Incision drainage bone debridement with ulcer ellipse and closure, left foot. Findings: soft bone medial cuneiform, ulcer tracked to bone Complications: none Specimen(s) removed: bone for path x2 medial cuneiform, bone tissue for cx x2 medial cuneiform Estimated blood loss: less than 10mL Anesthesia: General Drains: None IVF Tourniquet time (min at mmHg) approx 30 min 215 mmhg Patient to: PACU Patient Condition: Good Implant/Devices: SEE IMPLANT LOG (if applicable) Date/Time of Procedure: SEE SURGICAL CARE RECORD Pollo Winters DPM Feb 08, 2018 15:16
--- NOTE | 2018-02-08 15:39 | MP ---
cc: Pollo Bettencourt DPM DATE OF OPERATION: 02/08/2018 PREOPERATIVE DIAGNOSES: Left foot ulcer, abscess, osteomyelitis with Charcot. POSTOPERATIVE DIAGNOSES: Left foot ulcer, abscess, osteomyelitis with Charcot. PROCEDURE PERFORMED: Incision, drainage, bone debridement with ulcer ellipse and intermediate wound closure approximately 4 cm, left foot. FINDINGS: Soft bone to the medial cuneiform, ulcer tracked directly to bone. COMPLICATIONS: None. SPECIMEN: Bone x 2 medial cuneiform. This was confirmed clinically and utilizing C-arm. Tissue bone was also sent for microbial analysis. ANESTHESIA: General. COMPLICATIONS: None. TOURNIQUET TIME: Approximately 30 minutes at a setting of 215 mmHg about the patient's left mid calf. PLAN OF ACTIVITY: Return to floor, monitor wound, await disposition, micro and path. JUSTIFICATION OF PROCEDURE: A 42-year-old male, chronic history of wound, Charcot deformity, subjective fevers noted. Previous bone apparently came back as negative for osteomyelitis. The patient developed drainage and worsening of the wound, presented to [place]. MRI shows likely osteomyelitis of the medial cuneiform given the clinical presentation and the depth of the wound. We devised a plan to move forward with attempting to isolate the pathogen as well as to confirm osteomyelitis. The patient will likely need IV antibiotics; however, the big picture is the patient has a Charcot foot, which may need a Charcot reconstruction at a later date. At first, we will try to calm down the infection and then speak further about possibly a reconstructive effort. No guarantees given or implied regarding the outcome. The patient understood that this infection and severity of foot condition can likely lead to [id number] amputation at a later date. PROCEDURE IN DETAIL: Under mild sedation, the patient was brought into the operating room, and placed on the operating table in the supine position. Following the induction of general anesthesia, the left lower extremity was scrubbed, prepped and draped in the usual aseptic fashion. The foot was elevated and exsanguinated and the previously placed mid calf tourniquet inflated at 215 mmHg. Utilizing fluoroscopic guidance and probing through the ulcer, we confirmed the medial cuneiform to be certain that there was no air for bone sampling. An elliptical incision was then performed from proximal to distal, encompassing the wound periphery, which is approximately 1.5 cm in its greatest width. The incision was approximately 4 cm in length. It was full thickness down to deep tissue, chronic inflammatory mixed fibrotic tissue was removed utilizing a rongeur and sharp dissection. Sharp and blunt dissection was carried down to the level of the medial cuneiform utilizing a rongeur. Four specimens were removed, 2 send for micro, 2 send for path. Wound was flushed with copious amounts of normal saline. Retention sutures were then placed across the wound. Bandage applied. The patient was transferred from the OR to PACU with all vital signs stable. Upon relieving the tourniquet, there was good capillary refill time to the digits. The patient will be followed. Anticipate bandage change in the next 2-3 days. Continue to follow micro and pathology. HENRY Quiroz/ISHMAEL , 03:16 PM , 03:38 PM
[2018-02-08 16:00] VITALS: BP 98/53; PULSE 74; RESP 18; TEMP 98; O2SAT 94
--- NOTE | 2018-02-08 16:35 | HHI.IDPN ---
Note Infectious Disease Note Patient is status post debridement of the left foot. He denies chills. He denies shortness of breath, nausea or vomiting. Blood cultures are positive for staph aureus. Wound cultures positive for MSSA. Afebrile. PAST MEDICAL HISTORY: Rheumatoid arthritis, peripheral neuropathy, Charcot deformity of the left foot, hypertension, degenerative disk disease of the back. Right knee arthroscopy, bone biopsy of the left foot. Prior treatment of the left foot for osteomyelitis. Cultures were negative. ALLERGIES: NO KNOWN DRUG ALLERGIES. MEDICATIONS: Current Medications Medications (Trade) Dose Ordered Sig/Ana Route PRN Reason Start Time Stop Time Status Last Admin Dose Admin Acetaminophen (Tylenol) 500 mg Q6H PRN PO temp >101, headache 02/06/18 23:15 02/07/18 00:58 Desipramine HCl (Norpramin) 150 mg HS PO 02/07/18 21:00 02/07/18 22:00 Gabapentin (Neurontin) 300 mg TID PO 02/07/18 09:00 02/08/18 09:33 Lamotrigine (LaMICtal) 75 mg BID PO 02/07/18 09:00 02/08/18 09:33 Metoprolol Tartrate (Lopressor) 50 mg DAILY PO 02/07/18 09:00 02/08/18 09:33 Methadone HCl (Dolophine) 10 mg TID PO 02/07/18 18:00 02/08/18 09:34 Cefazolin Sodium/ Dextrose 50 ml @ 100 mls/hr Q8H IV 02/08/18 15:00 02/08/18 15:00 Miscellaneous Information ([facility] Nursing Information) ALL NURSING DEPARTME... UNSCH PRN .XX SEE LABEL COMMENTS 02/08/18 15:10 02/09/18 15:09 Objective: Vital Signs Date Time Temp Pulse Resp B/P (MAP) Pulse Ox O2 Delivery O2 Flow Rate FiO2 02/08/18 15:44 99.2 73 18 97/56 (70) 94 Room Air 02/08/18 15:30 73 18 100/58 (72) 94 Room Air 02/08/18 15:15 74 18 101/59 (73) 94 Room Air 02/08/18 15:04 99.2 77 18 101/59 (73) 94 Room Air 02/08/18 12:00 98.7 77 18 127/77 (94) 98 02/08/18 08:00 98.2 93 18 130/77 (94) 100 02/08/18 00:00 98.7 87 17 119/62 (81) 99 02/07/18 20:00 100.0 91 17 122/65 (84) 99 Laboratory Tests Test 02/06/18 21:27 White Blood Count 8.4 TH/MM3 Red Blood Count 5.04 MIL/MM3 Hemoglobin 14.3 GM/DL Hematocrit 41.6 % Mean Corpuscular Volume 82.4 FL Mean Corpuscular Hemoglobin 28.4 PG Mean Corpuscular Hemoglobin Concent 34.4 % Red Cell Distribution Width 13.5 % Platelet Count 214 TH/MM3 Mean Platelet Volume 7.9 FL Neutrophils (%) (Auto) 82.9 % Lymphocytes (%) (Auto) 9.7 % Monocytes (%) (Auto) 6.6 % Eosinophils (%) (Auto) 0.0 % Basophils (%) (Auto) 0.8 % Neutrophils # (Auto) 7.0 TH/MM3 Lymphocytes # (Auto) 0.8 TH/MM3 Monocytes # (Auto) 0.6 TH/MM3 Eosinophils # (Auto) 0.0 TH/MM3 Basophils # (Auto) 0.1 TH/MM3 CBC Comment DIFF FINAL Differential Comment Erythrocyte Sedimentation Rate 51 mm/hr Laboratory Tests Test 02/06/18 21:27 02/07/18 00:30 02/07/18 09:25 Blood Urea Nitrogen 6 MG/DL 5 MG/DL Creatinine 1.04 MG/DL 0.87 MG/DL Random Glucose 148 MG/DL 128 MG/DL Total Protein 8.6 GM/DL Albumin 3.4 GM/DL Calcium Level 8.9 MG/DL 8.1 MG/DL Magnesium Level 1.8 MG/DL Alkaline Phosphatase 149 U/L Aspartate Amino Transf (AST/SGOT) 36 U/L Alanine Aminotransferase (ALT/SGPT) 31 U/L Total Bilirubin 0.6 MG/DL Sodium Level 131 MEQ/L 137 MEQ/L Potassium Level 3.7 MEQ/L 3.7 MEQ/L Chloride Level 98 MEQ/L 103 MEQ/L Carbon Dioxide Level 19.8 MEQ/L 25.1 MEQ/L Anion Gap 13 MEQ/L 9 MEQ/L Estimat Glomerular Filtration Rate 78 ML/MIN 96 ML/MIN Lactic Acid Level 2.8 mmol/L 2.4 mmol/L C-Reactive Protein 13.00 MG/DL 16.00 MG/DL Microbiology Date/Time Source Procedure Growth Status 02/06/18 21:27 Blood Peripheral Aerobic Blood Culture - Preliminary NO GROWTH IN 1 DAY Resulted 02/06/18 21:27 Anaerobic Blood Culture - Preliminary Gram Positive Cocci Resulted 02/06/18 21:20 Blood Peripheral Aerobic Blood Culture - Preliminary NO GROWTH IN 2 DAYS Resulted 02/06/18 21:20 Anaerobic Blood Culture - Preliminary Staphylococcus Aureus Resulted 02/08/18 14:48 Wound Foot Fungal Smear Pending Received 02/08/18 14:48 Wound Foot Fungal Culture Pending Received 02/08/18 14:48 Wound Foot Acid Fast Stain Pending Received 02/08/18 14:48 Wound Foot Mycobacterial Culture Pending Received 02/08/18 14:48 Wound Foot Gram Stain Pending Received 02/08/18 14:48 Wound Foot Wound Culture Pending Received 02/08/18 14:44 Wound Foot Fungal Smear Pending Received 02/08/18 14:44 Wound Foot Fungal Culture Pending Received 02/08/18 14:44 Wound Foot Acid Fast Stain Pending Received 02/08/18 14:44 Wound Foot Mycobacterial Culture Pending Received 02/08/18 14:44 Wound Foot Gram Stain Pending Received 02/08/18 14:44 Wound Foot Wound Culture Pending Received 02/07/18 07:55 Wound Foot Gram Stain - Final Resulted 02/07/18 07:55 Wound Culture - Preliminary Staphylococcus Aureus Resulted 02/06/18 21:27 Wound Foot Gram Stain - Final Complete 02/06/18 21:27 Wound Culture - Final Staphylococcus Aureus Complete PHYSICAL EXAMINATION: GENERAL: Awake alert and oriented. HEENT: Head atraumatic. Extraocular movements are grossly intact. Pupils reactive to light without icterus. No conjunctival erythema. Oropharynx mucosa is moist. No visible lesions. NECK: Supple without adenopathy. LUNGS: Clear, slightly diminished breath sounds. HEART: Regular S1, S2, without murmurs, rubs or gallops. ABDOMEN: Bowel sounds present. Soft, nontender. EXTREMITIES: Left foot has Charcot deformity causing angulation of the foot towards the lateral part in the direction of the fifth toe. Post debridement. Dressing in place. SKIN: No rash. NEUROLOGIC: No gross focal findings. PSYCHIATRIC: Calm and cooperative. IMPRESSION: 1. Osteomyelitis involving the medial cuneiform. MSSA. 2. Bacteremia due to staph aureus emanating from the left foot. 3. Charcot deformity of the left foot. 4. Fever. Temperature improved. RECOMMENDATIONS: 1. Discontinue linezolid. 2. Discontinue piperacillin/tazobactam. 3. Begin Ancef 2 g IV every 8 hours 4. Monitor repeat blood culture. 5. Monitor clinical status. Lake Silva MD Feb 08, 2018 16:35
[2018-02-08 20:00] VITALS: BP 117/66; PULSE 88; RESP 20; TEMP 98.6; O2SAT 94
[2018-02-08] MEDS: DESIPRAMINE HCL 25 MG TAB PO SCH (20:12)
[2018-02-08] MEDS: ACETAMINOPHEN 500 MG CPLT PO PRN (20:16)
[2018-02-09] VITALS: BP 106/56; PULSE 82; RESP 20; TEMP 98.6; O2SAT 93
[2018-02-09 04:00] VITALS: BP 142/72; PULSE 84; RESP 20; TEMP 98; O2SAT 100
[2018-02-09] MEDS: ceFAZolin 2 GM PREMIX 50 ML IV SCH ×3 (05:42→23:56)
--- NOTE | 2018-02-09 07:59 | HHI.PR ---
Subjective Remarks Pt reports that his pain is at baseline level Not eating much, poor appetite No BM in 3 days, +flatus He complains of reflux symptoms Objective Vitals Vital Signs Date Time Temp Pulse Resp B/P (MAP) Pulse Ox O2 Delivery O2 Flow Rate FiO2 02/09/18 04:00 98.0 84 20 142/72 (95) 100 02/09/18 00:00 98.6 82 20 106/56 (73) 93 02/08/18 20:00 98.6 88 20 117/66 (83) 94 02/08/18 16:00 98.0 74 18 98/53 (68) 94 02/08/18 15:44 99.2 73 18 97/56 (70) 94 Room Air 02/08/18 15:30 73 18 100/58 (72) 94 Room Air 02/08/18 15:15 74 18 101/59 (73) 94 Room Air 02/08/18 15:04 99.2 77 18 101/59 (73) 94 Room Air 02/08/18 12:00 98.7 77 18 127/77 (94) 98 02/08/18 08:00 98.2 93 18 130/77 (94) 100 Result Diagram: 02/06/18212602/07/18924 Other Results Laboratory Tests Test 02/07/18 09:25 Blood Urea Nitrogen 5 MG/DL Creatinine 0.87 MG/DL Random Glucose 128 MG/DL Calcium Level 8.1 MG/DL Sodium Level 137 MEQ/L Potassium Level 3.7 MEQ/L Chloride Level 103 MEQ/L Carbon Dioxide Level 25.1 MEQ/L Anion Gap 9 MEQ/L Estimat Glomerular Filtration Rate 96 ML/MIN C-Reactive Protein 16.00 MG/DL Imaging Last Impressions Chest X-Ray 02/06/182119 Signed Impressions: CONCLUSION: No active disease. Objective Remarks GENERAL: This is a well-nourished, well-developed patient, in no apparent distress. CARDIO: Regular RESP: CTA bilaterally. ABD: +BS, soft, non-tender, nondistended. EXT: Dressing left foot dry and intact Procedures Incision, drainage, bone debridement with ulcer ellipse and intermediate wound closure approximately 4 cm, left foot on 02/08/[address] Bettencourt A/P Problem List: (1) infected foot Plan: Left foot infection Osteomyelitis Charcot foot Patient has chronic left foot wound which is been present for approximately 2 years. Patient recently admitted to [facility] from 01/21/18 to . Per discharge summary patient was admitted and treated for acute left foot cellulitis, suspected osteomyelitis of the left foot and chronic left foot ulcer with recurrent infection. Outpatient MRI of the left foot that 01/17/2018 suggesting osteomyelitis. Patient was then instructed to go to the hospital by his outpatient cartridge assembler. While at [facility] patient had a biopsy of the left foot with intraoperative biopsy which did not grow any pathology. He reports that the IV antibiotic (Unasyn and vancomycin) that he was on during his hospitalization was discontinued and he was discharged home off of all antibiotic. The patient reports that the day prior to admission he began to have fevers again up to 100 and on the day of admission he had a T-max of 103.5 which prompted his visit to this emergency department. Patient has been doing home dressing changes and noted increased drainage as well. - Podiatry was consulted at admission - Patient was started on vancomycin and Zosyn in emergency department and continued on Zosyn and Zyvox - Blood cultures obtained on 02/06 with one bottle growing gram-positive cocci and one with MSSA - Wound culture on 02/06 of left foot growing MSSA - MRI left foot (02/07/18) --> Abnormal enhancement and edema of the medial cuneiform characteristic of osteomyelitis with adjacent soft tissue edema. Significant facet arthrosis first and second tarsometatarsal joints. - Pt underwent Incision, drainage, bone debridement with ulcer ellipse and intermediate wound closure approximately 4 cm of the left foot on 02/08/[address] Bettencourt - Infectious disease following. Recommend stopping Zyvox and Zosyn on 02/08 and pt was started on Ancef 2grams Q8H Peripheral neuropathy - Continue patient's home gabapentin Depression - Continue patient's home Desipramine Chronic pain - Continue patient's home methadone SCDs for DVT prophylaxis (2) Peripheral neuropathy ICD Codes: G62.9 - Polyneuropathy, unspecified (3) Depression ICD Codes: F32.9 - Major depressive disorder, single episode, unspecified Fariba Irby Feb 09, 2018 07:59
[2018-02-09 08:00] VITALS: BP 109/64; PULSE 83; RESP 16; TEMP 98.1; O2SAT 98
[2018-02-09] MEDS: GABAPENTIN 300 MG CAP PO SCH ×3 (09:45→18:34)
[2018-02-09] MEDS: METHADONE HCL 10 MG TAB PO SCH ×3 (09:45→18:34)
[2018-02-09] MEDS: lamoTRIgine 25 MG TAB PO SCH ×2 (09:45→19:52)
[2018-02-09] MEDS: METOPROLOL TARTRATE 50 MG TAB PO SCH (09:45)
[2018-02-09 09:47] LABS: AUTOMATED NEUTROPHIL # 3.3 TH/MM3 (1.8-7.7); BASOPHIL % 0.4 % (0.0-2.0); EOSINOPHIL # 0.1 TH/MM3 (0-0.4); EOSINOPHIL % 1.2 % (0.0-4.0); HEMATOCRIT 33.9 % (39.0-51.0); HEMOGLOBIN 11.6 GM/DL (13.0-17.0); LYMPHOCYTE # 1.6 TH/MM3 (1.0-4.8); MEAN CORPUSCULAR HEMOGLOBIN 28.2 PG (27.0-34.0); MEAN PLATELET VOLUME 7.7 FL (7.0-11.0); MONO % 13.3 % (0.0-8.0); MONOCYTE # 0.8 TH/MM3 (0-0.9); NEUT % 57.1 % (16.0-70.0); PLATELET COUNT 167 TH/MM3 (150-450); RED BLOOD COUNT 4.09 MIL/MM3 (4.50-5.90); RED CELL DISTRIBUTION WIDTH 13.8 % (11.6-17.2); WHITE BLOOD COUNT 5.7 TH/MM3 (4.0-11.0)
[2018-02-09] MEDS ORDERED: PANTOPRAZOLE SOD 40 MG DELAYED RELEASE TAB PO ONE (10:00)
[2018-02-09 10:06] LABS: BICARBONATE 26.2 MEQ/L (21.0-32.0); CALCIUM 8.1 MG/DL (8.5-10.1); CREATININE 0.66 MG/DL (0.60-1.30)
[2018-02-09 12:00] VITALS: BP 111/61; PULSE 67; RESP 17; TEMP 97.4; O2SAT 96
[2018-02-09 16:00] VITALS: BP 105/61; PULSE 74; RESP 17; TEMP 97.7; O2SAT 94
--- NOTE | 2018-02-09 17:05 | ECHRPT ---
Indication: Acute and subacute endocarditis, unspecified CONCLUSIONS Normal left ventricular size and wall thickness. The left ventricular systolic function is normal wi th an estimated ejection fraction of 55%. Technically difficult study; regional wall motion abnormalitie s cannot be ruled out. There is trace tricuspid valve regurgitation. The valves are poorly imaged. endocarditis cannot b e ruled out on the basis of this study. BP: 109 / 64 HR: 83 Rhythm: Sinus MEASUREMENTS (Male / Female) Normal Values Technical Quality:Fair 2D ECHO LV Diastolic Diameter PLAX 4.4 cm 4.2 - 5.9 / 3.9 - 5.3 cm LV Systolic Diameter PLAX 3.6 cm IVS Diastolic Thickness 1.3 cm 0.6 - 1.0 / 0.6 - 0.9 cm LVPW Diastolic Thickness 1.2 cm 0.6 - 1.0 / 0.6 - 0.9 cm LV Relative Wall Thickness 0.6 LVOT Diameter 2.1 cm M-MODE Aortic Root Diameter MM 3.6 cm LA Systolic Diameter MM 3.5 cm LA Ao Ratio MM 1.0 AV Cusp Separation MM 2.4 cm DOPPLER AV Peak Velocity 95.0 cm/s AV Peak Gradient 3.6 mmHg LVOT Peak Velocity 65.2 cm/s LVOT Peak Gradient 1.7 mmHg AV Area Cont Eq pk 2.4 cm Mitral E Point Velocity 92.3 cm/s Mitral A Point Velocity 34.1 cm/s Mitral E to A Ratio 2.7 LV E' Lateral Velocity 12.3 cm/s Mitral E to LV E' Lateral Ratio 7.5 LV E' Septal Velocity 8.2 cm/s Mitral E to LV E' Septal Ratio 11.3 TR Peak Velocity 229.0 cm/s TR Peak Gradient 21.0 mmHg Right Atrial Pressure 10.0 mmHg Pulmonary Artery Systolic Pressu 31.0 mmHg Right Ventricular Systolic Press 31.0 mmHg PV Peak Velocity 97.7 cm/s PV Peak Gradient 3.8 mmHg FINDINGS LEFT VENTRICLE Normal left ventricular size and wall thickness. The left ventricular systolic function is normal wi th an estimated ejection fraction of 55%. Technically difficult study; regional wall motion abnormalitie s cannot be ruled out. RIGHT VENTRICLE Normal right ventricular size and systolic function. LEFT ATRIUM The left atrial size is normal. RIGHT ATRIUM The right atrial size is normal. ATRIAL SEPTUM Normal atrial septal thickness without atrial level shunting by limited color doppler interrogation. AORTA The aortic root and proximal ascending aorta are normal in size on limited imaging. MITRAL VALVE Structurally normal mitral valve. No mitral valve stenosis or regurgitation. AORTIC VALVE Trileaflet aortic valve. No aortic valve stenosis or regurgitation. TRICUSPID VALVE There is trace tricuspid valve regurgitation. The estimated pulmonary arterial pressure is 31 mmHg. PULMONARY VALVE No pulmonary valve regurgitation or stenosis. VESSELS The inferior vena cava is normal in size. PERICARDIUM No pericardial effusion. Vinny Patel MD (Electronically Signed) Final Date:09 February 2018 17:04
--- NOTE | 2018-02-09 19:35 | HHI.PR ---
Subjective Remarks no pain no events overnight Objective Vital Signs Date Time Temp Pulse Resp B/P (MAP) Pulse Ox O2 Delivery O2 Flow Rate FiO2 02/09/18 16:00 97.7 74 17 105/61 (76) 94 02/09/18 12:00 97.4 67 17 111/61 (78) 96 02/09/18 08:00 98.1 83 16 109/64 (79) 98 02/09/18 04:00 98.0 84 20 142/72 (95) 100 02/09/18 00:00 98.6 82 20 106/56 (73) 93 02/08/18 20:00 98.6 88 20 117/66 (83) 94 I/O 02/08/18 02/08/18 02/08/18 02/09/18 02/09/18 02/09/18 07:00 15:00 23:00 07:00 15:00 23:00 Intake Total 0 ml 700 ml 480 ml 480 ml 1935 ml Output Total 300 ml 5 ml 2000 ml 1250 ml Balance -300 ml 695 ml 480 ml -1520 ml 685 ml Intake Oral 0 ml 480 ml 380 ml 1935 ml IV Total 700 ml 100 ml Output Urine Total 300 ml 2000 ml 1250 ml Estimated Blood Loss 5 ml # Voids 4 # Bowel Movements 0 1 Result Diagram: 02/09/18 0807 02/09/18 0807 Imaging Last 72 hours Impressions Foot X-Ray 02/07/18 0000 Signed Impressions: CONCLUSION: Significant facet arthrosis first and second tarsometatarsal joints and there i s diffuse sclerosis of medial cuneiform. Patient's MRI is highly suspicious for osteomyelitis involving the medial cuneiform. Foot MRI 02/07/18 0000 Signed Impressions: CONCLUSION: 1. Abnormal enhancement and edema of the medial cuneiform characteristic of os teomyelitis with adjacent soft tissue edema. 2. Significant facet arthrosis first and second tarsometatarsal joints. Chest X-Ray 02/06/182119 Signed Impressions: CONCLUSION: No active disease. Procedures Sg- SP left foot I and D bone debridement ulcer ellipse and wound closure Other Results Date/Time Source Procedure Growth Status 02/09/18 16:40 Blood Peripheral Aerobic Blood Culture Pending Received 02/09/18 16:40 Blood Peripheral Anaerobic Blood Culture Pending Received ORDERED: WOUND CULTURE COMMENTS: Comment: #2 C&S, GRAM STAIN Site description: LEFT MEDIAL CUNEIFORM QUERIES: Method of Collection: TISSUE ACT WKST: GS 02/08/18 #4 WOUNDS 02/09/18 #1 Procedure Result Verified Site GRAM STAIN Final 02/09/18-0857 RARE GRAM POSITIVE COCCI IN PAIRS RARE WBC WOUND CULTURE Preliminary 02/09/18-1354 RARE GROWTH GRAM POSITIVE COCCI - FURTHER ID TO FOLLOW Objective Remarks A and O x3 Left foot with bandage clean dry and intact toes pink, sensation absent below knee Medications and IVs Administered Medications Medications (Trade) Dose Ordered Sig/Ana Route PRN Reason Start Time Stop Time Status Last Admin Dose Admin Acetaminophen (Tylenol) 500 mg Q6H PRN PO temp >101, headache 02/06/18 23:15 02/08/18 20:16 Desipramine HCl (Norpramin) 150 mg HS PO 02/07/18 21:00 02/08/18 20:12 Gabapentin (Neurontin) 300 mg TID PO 02/07/18 09:00 02/09/18 18:34 Lamotrigine (LaMICtal) 75 mg BID PO 02/07/18 09:00 02/09/18 09:45 Metoprolol Tartrate (Lopressor) 50 mg DAILY PO 02/07/18 09:00 02/09/18 09:45 Methadone HCl (Dolophine) 10 mg TID PO 02/07/18 18:00 6/13/18 18:34 Cefazolin Sodium/ Dextrose 50 ml @ 100 mls/hr Q8H IV 02/08/18 15:00 02/09/18 15:21 Assessment and Plan Assessment and Plan Left foot ulcer infection charcot/ OM POD 1- doing well, bone cx shows gm +cocci, path is pending. Had discussion with family present re: primary goal is to resolve infection at this point. May be a candidate for Charcot reconstruction once infection clears (approx 2 months). We also discussed BKA. Patient wishes to continuing talks re : limb salvage vs BKA. Bandage to be changed in 1-2 days, reviewed Case with medicine Pollo Bettencourt DPM Feb 09, 2018 19:35
[2018-02-09] MEDS: DESIPRAMINE HCL 25 MG TAB PO SCH (19:52)
[2018-02-09 20:00] VITALS: BP 129/71; PULSE 79; RESP 20; TEMP 97.2; O2SAT 99
[2018-02-10] VITALS: BP 115/68; PULSE 79; RESP 20; TEMP 97.6; O2SAT 97
[2018-02-10] MEDS: ceFAZolin 2 GM PREMIX 50 ML IV SCH ×3 (06:16→23:04)
[2018-02-10 08:00] VITALS: BP 109/67; PULSE 76; RESP 16; TEMP 98; O2SAT 98
[2018-02-10] MEDS: lamoTRIgine 25 MG TAB PO SCH ×2 (09:07→20:08)
[2018-02-10] MEDS: METOPROLOL TARTRATE 50 MG TAB PO SCH (09:07)
[2018-02-10] MEDS: GABAPENTIN 300 MG CAP PO SCH ×3 (09:08→17:47)
[2018-02-10] MEDS: METHADONE HCL 10 MG TAB PO SCH ×3 (09:08→17:47)
[2018-02-10] MEDS: PANTOPRAZOLE SOD 40 MG DELAYED RELEASE TAB PO SCH (09:08)
--- NOTE | 2018-02-10 10:03 | HHI.PR ---
Subjective Remarks No new complaints Afebrile Objective Vitals Vital Signs Date Time Temp Pulse Resp B/P (MAP) Pulse Ox O2 Delivery O2 Flow Rate FiO2 02/10/18 08:00 98.0 76 16 109/67 (81) 98 02/10/18 00:00 97.6 79 20 115/68 (84) 97 02/09/18 20:00 97.2 79 20 129/71 (90) 99 02/09/18 16:00 97.7 74 17 105/61 (76) 94 02/09/18 12:00 97.4 67 17 111/61 (78) 96 Result Diagram: 02/09/18 0807 02/09/18 0807 Other Results Laboratory Tests Test 02/09/18 08:07 White Blood Count 5.7 TH/MM3 Red Blood Count 4.09 MIL/MM3 Hemoglobin 11.6 GM/DL Hematocrit 33.9 % Mean Corpuscular Volume 83.0 FL Mean Corpuscular Hemoglobin 28.2 PG Mean Corpuscular Hemoglobin Concent 34.0 % Red Cell Distribution Width 13.8 % Platelet Count 167 TH/MM3 Mean Platelet Volume 7.7 FL Neutrophils (%) (Auto) 57.1 % Lymphocytes (%) (Auto) 28.0 % Monocytes (%) (Auto) 13.3 % Eosinophils (%) (Auto) 1.2 % Basophils (%) (Auto) 0.4 % Neutrophils # (Auto) 3.3 TH/MM3 Lymphocytes # (Auto) 1.6 TH/MM3 Monocytes # (Auto) 0.8 TH/MM3 Eosinophils # (Auto) 0.1 TH/MM3 Basophils # (Auto) 0.0 TH/MM3 CBC Comment DIFF FINAL Differential Comment Blood Urea Nitrogen 3 MG/DL Creatinine 0.66 MG/DL Random Glucose 96 MG/DL Calcium Level 8.1 MG/DL Sodium Level 137 MEQ/L Potassium Level 3.3 MEQ/L Chloride Level 101 MEQ/L Carbon Dioxide Level 26.2 MEQ/L Anion Gap 10 MEQ/L Estimat Glomerular Filtration Rate 132 ML/MIN Imaging Last Impressions Chest X-Ray 02/06/182119 Signed Impressions: CONCLUSION: No active disease. Objective Remarks GENERAL: This is a well-nourished, well-developed patient, in no apparent distress. CARDIO: Regular RESP: CTA bilaterally. ABD: +BS, soft, non-tender, nondistended. EXT: Dressing left foot dry and intact Procedures Incision, drainage, bone debridement with ulcer ellipse and intermediate wound closure approximately 4 cm, left foot on 02/08/[address] Bettencourt A/P Problem List: (1) infected foot Plan: Left foot infection Osteomyelitis Charcot foot Patient has chronic left foot wound which is been present for approximately 2 years. Patient recently admitted to [facility] from 01/21/18 to . Per discharge summary patient was admitted and treated for acute left foot cellulitis, suspected osteomyelitis of the left foot and chronic left foot ulcer with recurrent infection. Outpatient MRI of the left foot that 01/17/2018 suggesting osteomyelitis. 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 While at [facility] patient had a biopsy of the left foot with intraoperative biopsy which did not grow any pathology. He reports that the IV antibiotic (Unasyn and vancomycin) that he was on during his hospitalization was discontinued and he was discharged home off of all antibiotic. The patient reports that the day prior to admission he began to have fevers again up to 100 and on the day of admission he had a T-max of 103.5 which prompted his visit to this emergency department. Patient has been doing home dressing changes and noted increased drainage as well. - Podiatry was consulted at admission - Patient was started on vancomycin and Zosyn in emergency department and continued on Zosyn and Zyvox - Blood cultures obtained on 02/06 with one bottle growing gram-positive cocci and one with MSSA - Wound culture on 02/06 of left foot growing MSSA - MRI left foot (02/07/18) --> Abnormal enhancement and edema of the medial cuneiform characteristic of osteomyelitis with adjacent soft tissue edema. Significant facet arthrosis first and second tarsometatarsal joints. - Pt underwent Incision, drainage, bone debridement with ulcer ellipse and intermediate wound closure approximately 4 cm of the left foot on 02/08/[address] Bettencourt - Infectious disease following. Recommend stopping Zyvox and Zosyn on 02/08 and pt was started on Ancef 2grams Q8H - Preliminary surgical cultures are growing gram positive cocci. - Blood cultures repeated on 02/09 are pending. - Once repeat blood cultures are negative pt will likely need PICC line Peripheral neuropathy - Continue patient's home gabapentin Depression - Continue patient's home Desipramine Chronic pain - Continue patient's home methadone SCDs for DVT prophylaxis (2) Peripheral neuropathy ICD Codes: G62.9 - Polyneuropathy, unspecified (3) Depression ICD Codes: F32.9 - Major depressive disorder, single episode, unspecified Assessment and Plan Patient examined. Assessment and plan formulated with Fariba Irby PA-C. I agree with the above. left foot charcot with deep mssa infection and likely cuneiform osteo wound cx's mssa. bone path pending. await 3 days neg blood cx and then picc for 6weeks abx. pt contemplating bka . Fariba Irby Feb 10, 2018 10:03 Emiliano Marques MD Feb 10, 2018 14:40
--- NOTE | 2018-02-10 11:48 | HHI.IDPN ---
Note Infectious Disease Note Patient feels okay. No chills, nausea or vomiting. Repeat blood culture negative x 1 day. Afebrile. PAST MEDICAL HISTORY: Rheumatoid arthritis, peripheral neuropathy, Charcot deformity of the left foot, hypertension, degenerative disk disease of the back. Right knee arthroscopy, bone biopsy of the left foot. Prior treatment of the left foot for osteomyelitis. Cultures were negative. ALLERGIES: NO KNOWN DRUG ALLERGIES. MEDICATIONS: Current Medications Medications (Trade) Dose Ordered Sig/Ana Route PRN Reason Start Time Stop Time Status Last Admin Dose Admin Acetaminophen (Tylenol) 500 mg Q6H PRN PO temp >101, headache 02/06/18 23:15 02/08/18 20:16 Desipramine HCl (Norpramin) 150 mg HS PO 02/07/18 21:00 02/09/18 19:52 Gabapentin (Neurontin) 300 mg TID PO 02/07/18 09:00 02/10/18 09:08 Lamotrigine (LaMICtal) 75 mg BID PO 02/07/18 09:00 02/10/18 09:07 Metoprolol Tartrate (Lopressor) 50 mg DAILY PO 02/07/18 09:00 02/10/18 09:07 Methadone HCl (Dolophine) 10 mg TID PO 02/07/18 18:00 02/10/18 09:08 Cefazolin Sodium/ Dextrose 50 ml @ 100 mls/hr Q8H IV 02/08/18 15:00 02/10/18 06:16 Pantoprazole Sodium (Protonix) 40 mg DAILY PO 02/10/18 09:00 02/10/18 09:08 Objective: Vital Signs Date Time Temp Pulse Resp B/P (MAP) Pulse Ox O2 Delivery O2 Flow Rate FiO2 02/10/18 08:00 98.0 76 16 109/67 (81) 98 02/10/18 00:00 97.6 79 20 115/68 (84) 97 02/09/18 20:00 97.2 79 20 129/71 (90) 99 02/09/18 16:00 97.7 74 17 105/61 (76) 94 02/09/18 12:00 97.4 67 17 111/61 (78) 96 Laboratory Tests Test 02/09/18 08:07 White Blood Count 5.7 TH/MM3 Red Blood Count 4.09 MIL/MM3 Hemoglobin 11.6 GM/DL Hematocrit 33.9 % Mean Corpuscular Volume 83.0 FL Mean Corpuscular Hemoglobin 28.2 PG Mean Corpuscular Hemoglobin Concent 34.0 % Red Cell Distribution Width 13.8 % Platelet Count 167 TH/MM3 Mean Platelet Volume 7.7 FL Neutrophils (%) (Auto) 57.1 % Lymphocytes (%) (Auto) 28.0 % Monocytes (%) (Auto) 13.3 % Eosinophils (%) (Auto) 1.2 % Basophils (%) (Auto) 0.4 % Neutrophils # (Auto) 3.3 TH/MM3 Lymphocytes # (Auto) 1.6 TH/MM3 Monocytes # (Auto) 0.8 TH/MM3 Eosinophils # (Auto) 0.1 TH/MM3 Basophils # (Auto) 0.0 TH/MM3 CBC Comment DIFF FINAL Differential Comment Laboratory Tests Test 02/09/18 08:07 Blood Urea Nitrogen 3 MG/DL Creatinine 0.66 MG/DL Random Glucose 96 MG/DL Calcium Level 8.1 MG/DL Sodium Level 137 MEQ/L Potassium Level 3.3 MEQ/L Chloride Level 101 MEQ/L Carbon Dioxide Level 26.2 MEQ/L Anion Gap 10 MEQ/L Estimat Glomerular Filtration Rate 132 ML/MIN Microbiology Date/Time Source Procedure Growth Status 02/09/18 16:40 Blood Peripheral Aerobic Blood Culture - Preliminary NO GROWTH IN 1 DAY Resulted 02/09/18 16:40 Blood Peripheral Anaerobic Blood Culture - Preliminary NO GROWTH IN 1 DAY Resulted 02/08/18 14:48 Wound Foot Fungal Smear - Final NO FUNGAL ELEMENTS SEEN. Resulted 02/08/18 14:48 Wound Foot Fungal Culture Pending Resulted 02/08/18 14:48 Wound Foot Acid Fast Stain - Final NO ACID FAST BACILLI SEEN Resulted 02/08/18 14:48 Wound Foot Mycobacterial Culture Pending Resulted 02/08/18 14:48 Wound Foot Gram Stain - Final Complete 02/08/18 14:48 Wound Culture - Final Staphylococcus Aureus Complete 02/08/18 14:44 Wound Foot Fungal Smear - Final NO FUNGAL ELEMENTS SEEN. Resulted 02/08/18 14:44 Wound Foot Fungal Culture Pending Resulted 02/08/18 14:44 Wound Foot Acid Fast Stain - Final NO ACID FAST BACILLI SEEN Resulted 02/08/18 14:44 Wound Foot Mycobacterial Culture Pending Resulted 02/08/18 14:44 Wound Foot Gram Stain - Final Complete 02/08/18 14:44 Wound Culture - Final Staphylococcus Aureus Complete PHYSICAL EXAMINATION: GENERAL: Awake alert and oriented. HEENT: Head atraumatic. Extraocular movements are grossly intact. Pupils reactive to light without icterus. No conjunctival erythema. Oropharynx mucosa is moist. No visible lesions. NECK: Supple without adenopathy. LUNGS: Clear, slightly diminished breath sounds. HEART: Regular S1, S2, without murmurs, rubs or gallops. ABDOMEN: Bowel sounds present. Soft, nontender. EXTREMITIES: Left foot has Charcot deformity causing angulation of the foot towards the lateral part in the direction of the fifth toe. Post wound debridement. Dressing in place. SKIN: No rash. NEUROLOGIC: No gross focal findings. PSYCHIATRIC: Calm and cooperative. IMPRESSION: 1. Osteomyelitis involving the medial cuneiform. MSSA. 2. Bacteremia due to staph aureus emanating from the left foot. Repeat culture pending. 3. Charcot deformity of the left foot. 4. Fever. Temperature improved. Stable. RECOMMENDATIONS: 1. Continue Ancef 2 g IV every 8 hours. 2. Awaiting blood culture to be negative to place a PIC for outpatient IV antibiotics x 6 weeks and follow up with ID Dr. Johnson. Lake Silva MD Feb 10, 2018 11:48
[2018-02-10 12:00] VITALS: BP 115/72; PULSE 68; RESP 18; TEMP 97.5; O2SAT 95
[2018-02-10 16:00] VITALS: BP 112/75; PULSE 74; RESP 18; TEMP 97.5; O2SAT 94
[2018-02-10] MEDS: DESIPRAMINE HCL 25 MG TAB PO SCH (20:08)
[2018-02-10 20:20] VITALS: BP 142/69; PULSE 76; RESP 18; TEMP 97.5; O2SAT 99
[2018-02-11 00:09] VITALS: BP 134/76; PULSE 73; RESP 18; TEMP 97.9; O2SAT 96
[2018-02-11] MEDS: ceFAZolin 2 GM PREMIX 50 ML IV SCH ×3 (06:39→22:54)
[2018-02-11 08:00] VITALS: BP 124/72; PULSE 76; RESP 18; TEMP 97.9; O2SAT 98
[2018-02-11] MEDS: lamoTRIgine 25 MG TAB PO SCH ×2 (08:59→19:35)
[2018-02-11] MEDS: METOPROLOL TARTRATE 50 MG TAB PO SCH (08:59)
[2018-02-11] MEDS: GABAPENTIN 300 MG CAP PO SCH ×3 (09:00→18:17)
[2018-02-11] MEDS: METHADONE HCL 10 MG TAB PO SCH ×3 (09:00→18:17)
[2018-02-11] MEDS: PANTOPRAZOLE SOD 40 MG DELAYED RELEASE TAB PO SCH (09:00)
--- NOTE | 2018-02-11 09:24 | HHI.FF ---
Face to Face Verification Diagnosis: (1) Left foot infection (2) Peripheral neuropathy (3) Depression Physical Therapy Order: Evaluate and Treat Home Health Nursing Order: Medical education Wound care and dressing changes Nursing assessment with vital signs IV medication administration Instructions: Pt will need weekly CBC and BMP on Mondays with results to be sent to Dr. Rivka Johnson Pt will followup with Podiatry 2-3 days following discharge and wound will be re -evaluated at that time and dressing change orders to be determined by podiatry at that time. I have seen patient Sebastien PaulinoJr laury on 02/11/18. My clinical findings support the need for the requested home health care services because: High risk of falls Infection w/ risk of complications Injectable med education/admin I certify that my clinical findings support that this patient is homebound because: Post-op weakness Unsteady gait/balance Fariba Irby Feb 11, 2018 09:24 Emiliano Marques MD Feb 12, 2018 10:02
--- NOTE | 2018-02-11 09:24 | HHI.PR ---
Subjective Remarks No new complaints Afebrile He is moving his bowels without difficulty Denies any increase in pain Objective Vitals Vital Signs Date Time Temp Pulse Resp B/P (MAP) Pulse Ox O2 Delivery O2 Flow Rate FiO2 02/11/18 08:00 97.9 76 18 124/72 (89) 98 02/11/18 00:09 97.9 73 18 134/76 (95) 96 02/10/18 20:20 97.5 76 18 142/69 (93) 99 02/10/18 16:00 97.5 74 18 112/75 (87) 94 02/10/18 12:00 97.5 68 18 115/72 (86) 95 Result Diagram: 02/09/18 0802/09/18 08 Imaging Last Impressions Chest X-Ray 02/06/182119 Signed Impressions: CONCLUSION: No active disease. Objective Remarks GENERAL: This is a well-nourished, well-developed patient, in no apparent distress. CARDIO: Regular RESP: CTA bilaterally. ABD: +BS, soft, non-tender, nondistended. EXT: Dressing left foot dry and intact Procedures Incision, drainage, bone debridement with ulcer ellipse and intermediate wound closure approximately 4 cm, left foot on 02/08/[address] Bettencourt A/P Problem List: (1) infected foot Plan: Left foot infection Osteomyelitis Charcot foot Patient has chronic left foot wound which is been present for approximately 2 years. Patient recently admitted to [facility] from 01/21/18 to . Per discharge summary patient was admitted and treated for acute left foot cellulitis, suspected osteomyelitis of the left foot and chronic left foot ulcer with recurrent infection. Outpatient MRI of the left foot that 01/17/2018 suggesting osteomyelitis. 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 While at [facility] patient had a biopsy of the left foot with intraoperative biopsy which did not grow any pathology. He reports that the IV antibiotic (Unasyn and vancomycin) that he was on during his hospitalization was discontinued and he was discharged home off of all antibiotic. The patient reports that the day prior to admission he began to have fevers again up to 100 and on the day of admission he had a T-max of 103.5 which prompted his visit to this emergency department. Patient has been doing home dressing changes and noted increased drainage as well. - Podiatry was consulted at admission - Patient was started on vancomycin and Zosyn in emergency department and continued on Zosyn and Zyvox - Blood cultures obtained on 02/06 with one bottle growing gram-positive cocci and one with MSSA - Wound culture on 02/06 of left foot growing MSSA - MRI left foot (02/07/18) --> Abnormal enhancement and edema of the medial cuneiform characteristic of osteomyelitis with adjacent soft tissue edema. Significant facet arthrosis first and second tarsometatarsal joints. - Pt underwent Incision, drainage, bone debridement with ulcer ellipse and intermediate wound closure approximately 4 cm of the left foot on 02/08/[address] Bettencourt - Infectious disease following. Recommend stopping Zyvox and Zosyn on 02/08 and pt was started on Ancef 2grams Q8H - Preliminary surgical cultures are growing gram positive cocci. - Blood cultures on 02/09 with no growth x 1 day - Once repeat blood cultures are negative x 3 days pt will likely need PICC line for continued IV Abx per ID - Bone pathology is pending. Peripheral neuropathy - Continue patient's home gabapentin Depression - Continue patient's home Desipramine Chronic pain - Continue patient's home methadone SCDs for DVT prophylaxis (2) Peripheral neuropathy ICD Codes: G62.9 - Polyneuropathy, unspecified (3) Depression ICD Codes: F32.9 - Major depressive disorder, single episode, unspecified Assessment and Plan Patient examined. Assessment and plan formulated with Fariba Irby PA-C. I agree with the above. charcot foot with mssa infection and bacteremia. repeat blood cx ngtd x 2 days. picc when neg x 3 days. send abx orders to [facility] pharmacy. plan for dc/ home over the weekend ...Wednesday at latest with [facility] with close podiatry f/u Fariba Irby Feb 11, 2018 09:24 Emiliano Marques MD Feb 11, 2018 14:01
[2018-02-11 10:03] LABS: AUTOMATED NEUTROPHIL # 2.9 TH/MM3 (1.8-7.7); BASOPHIL % 0.5 % (0.0-2.0); EOSINOPHIL # 0.2 TH/MM3 (0-0.4); EOSINOPHIL % 3.6 % (0.0-4.0); HEMATOCRIT 36.8 % (39.0-51.0); HEMOGLOBIN 12.5 GM/DL (13.0-17.0); LYMPH % 38.8 % (9.0-44.0); LYMPHOCYTE # 2.3 TH/MM3 (1.0-4.8); MEAN CELL VOLUME 82.6 FL (80.0-100.0); MEAN CORPUSCULAR HGB CONC 33.9 % (32.0-36.0); MEAN PLATELET VOLUME 7.2 FL (7.0-11.0); MONO % 6.7 % (0.0-8.0); MONOCYTE # 0.4 TH/MM3 (0-0.9); NEUT % 50.4 % (16.0-70.0); PLATELET COUNT 270 TH/MM3 (150-450); RED BLOOD COUNT 4.46 MIL/MM3 (4.50-5.90); RED CELL DISTRIBUTION WIDTH 13.9 % (11.6-17.2); WHITE BLOOD COUNT 5.8 TH/MM3 (4.0-11.0)
[2018-02-11 11:47] LABS: BICARBONATE 27.8 MEQ/L (21.0-32.0); CALCIUM 8.7 MG/DL (8.5-10.1); CREATININE 0.63 MG/DL (0.60-1.30)
[2018-02-11 11:48] LABS: MAGNESIUM 2.2 MG/DL (1.5-2.5)
[2018-02-11 12:00] VITALS: BP 116/62; PULSE 69; RESP 18; TEMP 97.8; O2SAT 95
--- NOTE | 2018-02-11 12:55 | HHI.FF ---
Infusion Therapy Location of Infusion Therapy: Home Health Care IV Infusion Order Patient Information Patient Weight 105 kg Diagnosis: (1) infected foot Coded Allergies: No Known Allergies (Unverified Allergy, Unknown, 02/08/18) Administer Medication Cefazolin 2 grams IV q 8 hours Stop Treatment: Mar 22, 2018 Additional Information Venous access: PICC Line Additional Instructions [x] Peripheral flush and dressing changes per protocol [x] Implanted port and central online content coordinator: * Implanted port: 10 ml Normal Saline followed by 5 ml Heparin 100 units/ml Heparin flush after each use and monthly to maintain. [] May leave port accessed during therapy. [] May leave peripheral site accessed for duration of therapy. [x] If patient has SOB or respiratory distress, check oxygen saturation. If less than 90% or clinical signs of respiratory distress, administer oxygen at 2 L/min. via nasal cannula and notify physician. [x] Anaphylaxis/Reaction orders: * Stop infusion. * Keep IV line open with saline flush. * Notify physician. * Monitor vital signs every 15 minutes until symptoms resolve. * Check Oxygen saturation; Oxygen at 2 L/min. via nasal cannula if less than 90% or clinical signs of respiratory distress. * Administer diphenhydramine (Benadryl) 25 mg IV STAT, (unless patient has received as pre-med). May repeat once, if necessary. * Solu-Cortef 250 mg IVP over 30-60 seconds, use 100 mg vials for each dissolution. * Epinephrine (1mg/1 ml) 0.3 mg subcutaneously or IVP now with any signs of respiratory distress. * Check with physician for new additional pre-med orders if patient is re- challenged or re-treated. [x] May remove PICC line when treatment complete, after confirming with Physician. [x] If the patient is admitted to the hospital, the ED, or transferred via [facility] , complete transfer form including medication reconciliation order sheet. Laboratory Tests Weekly Labs: BMP, CBC w/diff Additional Information Follow up with Dr. Johnson after discharge. Lake Silva MD Feb 11, 2018 12:55
--- NOTE | 2018-02-11 15:24 | HHI.IDPN ---
Note Infectious Disease Note Patient is without complaints. He has no pain in the left foot. Repeat blood culture negative x 2 days. Afebrile. PAST MEDICAL HISTORY: Rheumatoid arthritis, peripheral neuropathy, Charcot deformity of the left foot, hypertension, degenerative disk disease of the back. Right knee arthroscopy, bone biopsy of the left foot. Prior treatment of the left foot for osteomyelitis. Cultures were negative. ALLERGIES: NO KNOWN DRUG ALLERGIES. MEDICATIONS: Current Medications Medications (Trade) Dose Ordered Sig/Ana Route PRN Reason Start Time Stop Time Status Last Admin Dose Admin Acetaminophen (Tylenol) 500 mg Q6H PRN PO temp >101, headache 02/06/18 23:15 02/08/18 20:16 Desipramine HCl (Norpramin) 150 mg HS PO 02/07/18 21:00 02/10/18 20:08 Gabapentin (Neurontin) 300 mg TID PO 02/07/18 09:00 02/11/18 13:34 Lamotrigine (LaMICtal) 75 mg BID PO 02/07/18 09:00 02/11/18 08:59 Metoprolol Tartrate (Lopressor) 50 mg DAILY PO 02/07/18 09:00 02/11/18 08:59 Methadone HCl (Dolophine) 10 mg TID PO 02/07/18 18:00 02/11/18 13:34 Cefazolin Sodium/ Dextrose 50 ml @ 100 mls/hr Q8H IV 02/08/18 15:00 02/11/18 06:39 Pantoprazole Sodium (Protonix) 40 mg DAILY PO 02/10/18 09:00 02/11/18 09:00 Current Medications Medications (Trade) Dose Ordered Sig/Ana Route PRN Reason Start Time Stop Time Status Last Admin Dose Admin Acetaminophen (Tylenol) 500 mg Q6H PRN PO temp >101, headache 02/06/18 23:15 02/08/18 20:16 Desipramine HCl (Norpramin) 150 mg HS PO 02/07/18 21:00 02/10/18 20:08 Gabapentin (Neurontin) 300 mg TID PO 02/07/18 09:00 02/11/18 13:34 Lamotrigine (LaMICtal) 75 mg BID PO 02/07/18 09:00 02/11/18 08:59 Metoprolol Tartrate (Lopressor) 50 mg DAILY PO 02/07/18 09:00 02/11/18 08:59 Methadone HCl (Dolophine) 10 mg TID PO 02/07/18 18:00 02/11/18 13:34 Cefazolin Sodium/ Dextrose 50 ml @ 100 mls/hr Q8H IV 02/08/18 15:00 02/11/18 06:39 Pantoprazole Sodium (Protonix) 40 mg DAILY PO 02/10/18 09:00 02/11/18 09:00 Objective: Vital Signs Date Time Temp Pulse Resp B/P (MAP) Pulse Ox O2 Delivery O2 Flow Rate FiO2 02/11/18 13:36 18 02/11/18 12:00 97.8 69 18 116/62 (80) 95 02/11/18 08:00 97.9 76 18 124/72 (89) 98 02/11/18 00:09 97.9 73 18 134/76 (95) 96 02/10/18 20:20 97.5 76 18 142/69 (93) 99 02/10/18 16:00 97.5 74 18 112/75 (87) 94 Laboratory Tests Test 02/11/18 07:29 White Blood Count 5.8 TH/MM3 Red Blood Count 4.46 MIL/MM3 Hemoglobin 12.5 GM/DL Hematocrit 36.8 % Mean Corpuscular Volume 82.6 FL Mean Corpuscular Hemoglobin 28.0 PG Mean Corpuscular Hemoglobin Concent 33.9 % Red Cell Distribution Width 13.9 % Platelet Count 270 TH/MM3 Mean Platelet Volume 7.2 FL Neutrophils (%) (Auto) 50.4 % Lymphocytes (%) (Auto) 38.8 % Monocytes (%) (Auto) 6.7 % Eosinophils (%) (Auto) 3.6 % Basophils (%) (Auto) 0.5 % Neutrophils # (Auto) 2.9 TH/MM3 Lymphocytes # (Auto) 2.3 TH/MM3 Monocytes # (Auto) 0.4 TH/MM3 Eosinophils # (Auto) 0.2 TH/MM3 Basophils # (Auto) 0.0 TH/MM3 CBC Comment DIFF FINAL Differential Comment Laboratory Tests Test 02/11/18 07:29 Blood Urea Nitrogen 3 MG/DL Creatinine 0.63 MG/DL Random Glucose 84 MG/DL Calcium Level 8.7 MG/DL Magnesium Level 2.2 MG/DL Sodium Level 142 MEQ/L Potassium Level 3.5 MEQ/L Chloride Level 105 MEQ/L Carbon Dioxide Level 27.8 MEQ/L Anion Gap 9 MEQ/L Estimat Glomerular Filtration Rate 139 ML/MIN Microbiology Date/Time Source Procedure Growth Status 02/09/18 16:40 Blood Peripheral Aerobic Blood Culture - Preliminary NO GROWTH IN 2 DAYS Resulted 02/09/18 16:40 Blood Peripheral Anaerobic Blood Culture - Preliminary NO GROWTH IN 2 DAYS Resulted Microbiology Date/Time Source Procedure Growth Status 02/09/18 16:40 Blood Peripheral Aerobic Blood Culture - Preliminary NO GROWTH IN 1 DAY Resulted 02/09/18 16:40 Blood Peripheral Anaerobic Blood Culture - Preliminary NO GROWTH IN 1 DAY Resulted 02/08/18 14:48 Wound Foot Fungal Smear - Final NO FUNGAL ELEMENTS SEEN. Resulted 02/08/18 14:48 Wound Foot Fungal Culture Pending Resulted 02/08/18 14:48 Wound Foot Acid Fast Stain - Final NO ACID FAST BACILLI SEEN Resulted 02/08/18 14:48 Wound Foot Mycobacterial Culture Pending Resulted 02/08/18 14:48 Wound Foot Gram Stain - Final Complete 02/08/18 14:48 Wound Culture - Final Staphylococcus Aureus Complete 02/08/18 14:44 Wound Foot Fungal Smear - Final NO FUNGAL ELEMENTS SEEN. Resulted 02/08/18 14:44 Wound Foot Fungal Culture Pending Resulted 02/08/18 14:44 Wound Foot Acid Fast Stain - Final NO ACID FAST BACILLI SEEN Resulted 02/08/18 14:44 Wound Foot Mycobacterial Culture Pending Resulted 02/08/18 14:44 Wound Foot Gram Stain - Final Complete 02/08/18 14:44 Wound Culture - Final Staphylococcus Aureus Complete PHYSICAL EXAMINATION: GENERAL: Awake alert and oriented. HEENT: Extraocular movements are grossly intact. No icterus. No conjunctival erythema. Oropharynx mucosa is moist. No visible lesions. NECK: Supple without adenopathy. LUNGS: Clear breath sounds. HEART: Regular S1, S2, without murmurs, rubs or gallops. ABDOMEN: Bowel sounds present. Soft, nontender. EXTREMITIES: Left foot has Charcot deformity causing angulation of the foot towards the lateral part in the direction of the fifth toe. Post wound debridement. Dressing in place. SKIN: No rash. NEUROLOGIC: No gross focal findings. PSYCHIATRIC: Calm and cooperative. IMPRESSION: 1. Osteomyelitis involving the medial cuneiform. MSSA. 2. Bacteremia due to staph aureus emanating from the left foot. Blood culture has no growth in 2 days. 3. Charcot deformity of the left foot. Podiatry planning on follow-up. Patient desires limb salvage. 4. Fever. Temperature improved. Stable. RECOMMENDATIONS: 1. Continue Ancef 2 g IV every 8 hours until March 22, 2018. 2. PICC line will be ordered for tomorrow and patient can be discharged if the blood cultures remain negative at 72 hours. 3. Follow up with ID Dr. Johnson. Lake Silva MD Feb 11, 2018 15:24
[2018-02-11 16:00] VITALS: BP 124/80; PULSE 70; RESP 16; TEMP 98; O2SAT 95
[2018-02-11] MEDS: DESIPRAMINE HCL 25 MG TAB PO SCH (19:35)
[2018-02-11 20:16] VITALS: BP 131/76; PULSE 71; RESP 17; TEMP 97.6; O2SAT 95
[2018-02-12 00:03] VITALS: BP 125/71; PULSE 74; RESP 18; TEMP 97.9; O2SAT 98
[2018-02-12] MEDS: ceFAZolin 2 GM PREMIX 50 ML IV SCH (06:49)
[2018-02-12 08:00] VITALS: BP 156/86; PULSE 79; RESP 17; TEMP 98; O2SAT 96
[2018-02-12] MEDS: METOPROLOL TARTRATE 50 MG TAB PO SCH (08:34)
[2018-02-12] MEDS: lamoTRIgine 25 MG TAB PO SCH (08:34)
[2018-02-12] MEDS: METHADONE HCL 10 MG TAB PO SCH (08:34)
[2018-02-12] MEDS: GABAPENTIN 300 MG CAP PO SCH (08:34)
[2018-02-12] MEDS: PANTOPRAZOLE SOD 40 MG DELAYED RELEASE TAB PO SCH (08:35)
[2018-02-12] MEDS ORDERED: [UNRECOGNIZED DRUG - CODE] IV (08:50)
--- NOTE | 2018-02-12 09:03 | HHI.DS ---
Discharge Summary Admission Date Feb 06, 2018 at 22:59 Discharge Date: Feb 12, 2018 Admitting Diagnosis Left foot infection (1) Left foot infection Diagnosis: Principal ICD Codes: L08.9 - Left foot infection (2) Charcot's joint of foot Diagnosis: Secondary ICD Codes: M14.679 - Charcot's joint, unspecified ankle and foot (3) Peripheral neuropathy Diagnosis: Secondary ICD Codes: G62.9 - Polyneuropathy, unspecified (4) Depression Diagnosis: Secondary ICD Codes: F32.9 - Major depressive disorder, single episode, unspecified Consultants Dr. Lake Silva - ID Dr. Pollo Bettencourt - Podiatry Procedures Incision, drainage, bone debridement with ulcer ellipse and intermediate wound closure approximately 4 cm, left foot on 02/08/[address] Bettencourt Brief History The patient is a 42 year old male patient with a past medical history which includes peripheral neuropathy, Charcot foot on the left, degenerative disc disease of his back, hypertension, chronic ulcer of the left foot, probably neuropathy and chronic methadone therapy. Patient presents to the [facility] emergency department with a history of peripheral neuropathy and Charcot foot with a chronic area of ulceration on the left foot that first was noticed 2 years ago. The patient reports that twice in the last 6 months he has had an infection associated with the ulcer. The patient was last admitted to [facility] from 01/21/18 to 01/27/18. Per discharge summary patient was admitted and treated for acute left foot cellulitis, suspected osteomyelitis of the left foot and chronic left foot ulcer with recurrent infection. Outpatient MRI of the left foot that 01/17/2018 suggesting osteomyelitis. Patient was then instructed to go to the hospital by his outpatient machine load clerk. While at [facility] patient had a biopsy of the left foot with intraoperative biopsy which did not grow any pathology. He reports that the IV antibiotic ( Unasyn and vancomycin) that he was on during his hospitalization was discontinued and he was discharged home off of all antibiotic. The patient reports that yesterday he began to have fevers again up to 100 and today he had a T-max of 103.5 which prompted his visit to this emergency department. The patient reports that he has been bandaging the area and changing the bandage every day. He reports that he last changed yesterday. Patient and report that there has been some drainage from the wound. When the bandage was removed in the emergency department today his reports that there is now a surrounding area of redness which is increased in size compared to his foot evaluation done yesterday when his bandage was replaced. He reports having chills. He reports having nausea without vomiting. He denies having any cough , congestion, sore throat, or rhinorrhea. He denies having any diarrhea. He denies having any frequency. Otherwise on review of systems he denies having any new neck or back pain, chest pain, shortness of breath or abdominal pain. CBC/BMP: 02/11/18 0729 02/11/18 0729 Significant Findings Laboratory Tests Test 02/11/18 07:29 Red Blood Count 4.46 MIL/MM3 (4.50-5.90) Hemoglobin 12.5 GM/DL (13.0-17.0) Hematocrit 36.8 % (39.0-51.0) Blood Urea Nitrogen 3 MG/DL (7-18) Imaging Last Impressions Foot X-Ray 02/07/18 0000 Signed Impressions: CONCLUSION: Significant facet arthrosis first and second tarsometatarsal joints and there i s diffuse sclerosis of medial cuneiform. Patient's MRI is highly suspicious for osteomyelitis involving the medial cuneiform. Foot MRI 02/07/18 0000 Signed Impressions: CONCLUSION: 1. Abnormal enhancement and edema of the medial cuneiform characteristic of os teomyelitis with adjacent soft tissue edema. 2. Significant facet arthrosis first and second tarsometatarsal joints. Chest X-Ray 02/06/18 2120 Signed Impressions: CONCLUSION: No active disease. PE at Discharge GENERAL: This is a well-nourished, well-developed patient, in no apparent distress. CARDIO: Regular RESP: CTA bilaterally. ABD: +BS, soft, non-tender, nondistended. EXT: Dressing left foot dry and intact Hospital Course Left foot infection Osteomyelitis Charcot foot Patient has chronic left foot wound which is been present for approximately 2 years. Patient recently admitted to [facility] from 01/21/18 to . Per discharge summary patient was admitted and treated for acute left foot cellulitis, suspected osteomyelitis of the left foot and chronic left foot ulcer with recurrent infection. Outpatient MRI of the left foot that 01/17/2018 suggesting osteomyelitis. Patient was then instructed to go to the hospital by his outpatient machine load clerk. While at [facility] patient had a biopsy of the left foot with intraoperative biopsy which did not grow any pathology. He reports that the IV antibiotic (Unasyn and vancomycin) that he was on during his hospitalization was discontinued and he was discharged home off of all antibiotic. The patient reports that the day prior to admission he began to have fevers again up to 100 and on the day of admission he had a T-max of 103.5 which prompted his visit to this emergency department. Patient has been doing home dressing changes and noted increased drainage as well. Podiatry was consulted at admission. Patient was started on vancomycin and Zosyn in emergency department and continued on Zosyn and Zyvox. Blood cultures obtained on 02/06 with 2/4 growing MSSA. Wound culture on 02/06 of left foot growing MSSA. MRI left foot (02/07/18) --> Abnormal enhancement and edema of the medial cuneiform characteristic of osteomyelitis with adjacent soft tissue edema. Significant facet arthrosis first and second tarsometatarsal joints. Pt underwent Incision, drainage, bone debridement with ulcer ellipse and intermediate wound closure approximately 4 cm of the left foot on 02/08/[address] Bettencourt. Infectious disease following. Recommend stopping Zyvox and Zosyn on 02/08 and pt was started on Ancef 2grams Q8H. Preliminary surgical cultures are growing Staph Aureus. Blood cultures on 02/09 with no growth x 3 days. PICC line placed on 02/12 for continued IV Abx x 6 weeks per ID. Bone pathology from the left medial cuneiform with trabecular bone with reactive features, negative for osteomyelitis. Pt will continue on Cefazolin 2grams Q8H through March 22, 2018 per ID recommendations Pt will need weekly labs with CBC and BMP with results to Dr. Johnson Pt is to followup with Dr. Bettencourt 2-3 days following discharge for dressing change and wound check. Further dressing change orders per podiatry Pt is to followup with Dr. Johnson in 1 week. Pt is to followup with his PCP, Dr. Lenz in 1 week Peripheral neuropathy - Continue patient's home gabapentin Depression - Continue patient's home Desipramine Chronic pain - Continue patient's home methadone Pt Condition on Discharge: Stable Discharge Disposition: Disch w/ Home Health Serv Discharge Instructions DIET: Follow Instructions for: Heart Healthy Diet Activities you can perform: Non Weight Bearing Follow up Referrals: Appointment for Follow Up - 1 Week with Rivka Johnson Follow up on IV antibiotics Podiatry - 2-3 Days @ [facility] with Pollo Bettencourt DPM New Medications: Cefazolin Sodium/Dextrose,Iso (Cefazolin 2 G/100 ml-Dextrose) 2 Gram/100 Ml Froz.piggy 2 GM IV Q8HR for Infection for 38 Days, BAG Continued Medications: Desipramine (Desipramine) 150 Mg Tab 150 MG PO HS for Control Depression, #30 TAB 0 Refills Gabapentin (Gabapentin) 300 Mg Cap 300 MG PO TID, #90 CAP 0 Refills Lamotrigine (Lamotrigine) 100 Mg Tab 75 MG PO BID for Control Seizures, #60 TAB 0 Refills Methadone (Methadone) 10 Mg Tab 10 MG PO TID, TAB 0 Refills Metoprolol Tartrate (Metoprolol Tartrate) 50 Mg Tab 50 MG PO DAILY, #30 TAB 0 Refills Discontinued Medications: Ibuprofen (Ibuprofen) 400 Mg Tab 400 MG PO QID for Arthritis Pain, TAB 0 Refills Fariba Irby Feb 12, 2018 09:03 Emiliano Marques MD Feb 12, 2018 12:42
[2018-02-12 12:00] VITALS: BP 130/77; PULSE 71; RESP 20; TEMP 98.3; O2SAT 96
== END 2018-02-12 13:26 | disposition home or self-care (01) | DRG 580 ==
LOC: NEPC 20:47 → NEDA 22:59 → N07B 23:57
PROVIDERS: ADMIT Hospitalist; ATTEND Hospitalist
PROC: 0Y9N0ZZ Drainage of Left Foot, Open Approach (ICD-10-PCS; 2018-02-08)
PROC: 0QBM0ZX Excision of Left Tarsal, Open Approach, Diagnostic (ICD-10-PCS; principal; 2018-02-08 14:06)
PROC: 02HV33Z Insertion of Infusion Device into Superior Vena Cava, Percutaneous Approach (ICD-10-PCS; 2018-02-12)
DX: L97.529 Non-pressure chronic ulcer of other part of left foot with unspecified severity (principal); L03.116 Cellulitis of left lower limb; G62.9 Polyneuropathy, unspecified; I10 Essential (primary) hypertension; L02.612 Cutaneous abscess of left foot; M14.679 Charcot's joint, unspecified ankle and foot; B95.61 Methicillin susceptible Staphylococcus aureus infection as the cause of diseases classified elsewhere; R11.0 Nausea; M06.9 Rheumatoid arthritis, unspecified; M14.672 Charcot's joint, left ankle and foot; K21.9 Gastro-esophageal reflux disease without esophagitis; R00.0 Tachycardia, unspecified; M21.962 Unspecified acquired deformity of left lower leg; R60.9 Edema, unspecified; M19.079 Primary osteoarthritis, unspecified ankle and foot; F32.9 Major depressive disorder, single episode, unspecified; G89.29 Other chronic pain; R79.82 Elevated C-reactive protein (CRP); R70.0 Elevated erythrocyte sedimentation rate; F11.90 Opioid use, unspecified, uncomplicated; I45.19 Other right bundle-branch block; M47.9 Spondylosis, unspecified; I25.2 Old myocardial infarction; Z86.14 Personal history of Methicillin resistant Staphylococcus aureus infection; Z23 Encounter for immunization
CPT/HCPCS: 36569; 71045; 73630; 73720; 76000; 76937; 80048; 80053; 81001; 83605; 83735; 85025; 85610; 85652; 85730; 86140; 86403; 87015; 87040; 87070; 87102; 87116; 87147; 87176; 87186; 87205; 87206; 88305; 88307; 88311; 90732; 93005; 93306; 96365; 96375; A9579; J0690; J2250; J2543; J3370; J3480; J7030; J7050